=== PATIENT | male | born 1955 | race Caucasian/White ===

== ENCOUNTER 2019-05-29 10:18 | Inpatient (IN) | payer OTHER, MEDICAID ==
[~2019-05-29] VITALS: Ht 172.7 cm; Wt 73.0 kg
[2019-05-29 10:18] VITALS: BP_SYST 140
[2019-05-29] MEDS ORDERED: AMLO5TAB92 GT (10:57)
[2019-05-29] MEDS ORDERED: WHEY227P GT (10:59)
[2019-05-29] MEDS ORDERED: BIOT25008 GT (10:59)
[2019-05-29 11:35] LABS: BASOPHILS % (AUTO) 0.3 % (0.0-2.0); EOSINOPHILS % (AUTO) 0.3 % (0.0-4.0); HEMOGLOBIN 8.5 g/dL (14.0-18.0); LYMPHOCYTES # (AUTO) 0.4 K/uL (1.0-5.5); LYMPHOCYTES % (AUTO) 3.9 % (20.5-51.5); MEAN CORPUSCULAR HEMOGLOBIN 35 pg (27-31); MEAN CORPUSCULAR HGB CONC 34 % (32-36); MEAN CORPUSCULAR VOLUME 103 fL (79.0-98.0); MONOCYTES # (AUTO) 0.5 K/uL (0.0-1.0); MONOCYTES % (AUTO) 4.2 % (1.7-9.3); NEUTROPHILS # (AUTO) 10.2 K/uL (1.8-7.7); NEUTROPHILS % (AUTO) 91.3 % (40.0-70.0); PLATELET COUNT (AUTO) 88 K/uL (130-430); RED BLOOD CELL COUNT(AUTO) 2.43 MIL/uL (4.2-6.2); RED CELL DISTRIBUTION WIDTH 13.1 % (9.0-15.0); WHITE BLOOD COUNT (AUTO) 11.2 K/uL (4.8-10.8)
[2019-05-29 11:51] LABS: BILIRUBIN,URINE NEGATIVE (NEGATIVE); BLOOD, URINE 1+ (NEGATIVE); CLARITY/URINE SL CLOUDY (CLEAR); COLOR,URINE YELLOW (YELLOW); GLUCOSE,URINE NEGATIVE (NEGATIVE); KETONES,URINE NEGATIVE (NEGATIVE); LEUKOCYTE ESTERASE ,URINE 3+ (NEGATIVE); NITRITE, URINE NEGATIVE (NEGATIVE); PH,URINE 5.5 (5.0-8.0); PROTEIN URINE 1+ (NEGATIVE); UROBILINOGEN,URINE 0.2 (0.2-1.0)
[2019-05-29 11:57] LABS: BACTERIA,URINE FEW /HPF (None Seen); URINE AMORPHOUS URATE 1+ /HPF (None Seen); WBC,URINE 20-50 /HPF (0-3)
[2019-05-29] MEDS ORDERED: CETI10CA GT (12:00)
[2019-05-29] MEDS ORDERED: CRAN450C GT (12:06)
[2019-05-29] MEDS ORDERED: CLOB10TA GT (12:06)
[2019-05-29] MEDS ORDERED: ERGO400T7 GT (12:06)
[2019-05-29 12:16] LABS: CALCIUM 10.1 mg/dL (8.4-11.0); CREATININE 3.35 mg/dL (0.55-1.30); POTASSIUM 4.7 mmol/L (3.5-5.1); TOTAL BILIRUBIN 0.3 mg/dL (0.0-1.0)
[2019-05-29 12:21] LABS: ALBUMIN 2.4 g/dL (3.4-4.8)
[2019-05-29] MEDS ORDERED: TRI48 GT (12:22)
[2019-05-29] MEDS ORDERED: cefTRIAXone 1 GM IVPB PREMIX 50 ML IV ONE (13:15)
[2019-05-29 13:28] LABS: PROTHROMBIN TIME 9.9 SECS (9.5-12.5)
[2019-05-29] MEDS ORDERED: PHEN100O4 GT (14:12)
[2019-05-29] MEDS ORDERED: HYDR-4037 GT (14:12)
[2019-05-29] MEDS ORDERED: TYLL650 GT (14:12)
[2019-05-29] MEDS ORDERED: LACO100T2 GT (14:12)
[2019-05-29] MEDS ORDERED: [UNRECOGNIZED DRUG - CODE] TP (14:12)
[2019-05-29] MEDS ORDERED: DENO60DI SUBCUT (14:12)
[2019-05-29] MEDS ORDERED: ONDA4TAB5 PO (14:12)
[2019-05-29] MEDS ORDERED: SODI650T GT (14:12)
[2019-05-29] MEDS ORDERED: LEVE1000 GT ×2 (14:12)
[2019-05-29] MEDS ORDERED: ALBU2.5V7 INH (14:12)
[2019-05-29] MEDS ORDERED: LORA-258 IM (14:12)
[2019-05-29] MEDS ORDERED: [UNRECOGNIZED DRUG - CODE] IJ (14:12)
[2019-05-29] MEDS ORDERED: BISA10SU61 RC (14:12)
[2019-05-29] MEDS ORDERED: POLY17PO4 GT (14:12)
[2019-05-29] MEDS ORDERED: FER300L GT (14:12)
[2019-05-29] MEDS ORDERED: MULT-1145 GT (14:12)
[2019-05-29] MEDS ORDERED: IMO2 GT (14:12)
[2019-05-29] MEDS ORDERED: sodium chloride GT (14:12)
[2019-05-29] MEDS ORDERED: OMEP20CA11 GT (14:12)
[2019-05-29] MEDS ORDERED: ROBAC GT (14:12)
[2019-05-29] MEDS ORDERED: ASCO500S10 GT (14:12)
[2019-05-29] MEDS ORDERED: ACETAMINOPHEN 650 MG/20.3 ML UDC GT PRN (14:15)
[2019-05-29] MEDS ORDERED: FLUOCINOLONE 0.025% TP SCH (14:30)
[2019-05-29] MEDS ORDERED: LORazepam 1 MG TABLET GT PRN (14:30)
[2019-05-29] MEDS ORDERED: BISACODYL 10 MG/SUPPOSITORY RC PRN (14:30)
[2019-05-29] MEDS ORDERED: guaiFENesin 200 MG/CODEINE 20 MG/ 10 ML UDC GT PRN (14:30)
[2019-05-29] MEDS ORDERED: ONDANSETRON 4 MG ODT TAB PO PRN (14:30)
[2019-05-29] MEDS ORDERED: ALBUTEROL SULFATE 0.083% 2.5 MG/3 ML VIAL.NEB INH PRN (14:30)
[2019-05-29 14:31] VITALS: BP_SYST 134
[2019-05-29 15:41] VITALS: BP_SYST 124
[2019-05-29] MEDS ORDERED: TRIAMCINOLONE ACETONIDE 0.1% 15 GM OINT..GM. TP PRN (15:45)
[2019-05-29] MEDS: NACL 0.9% 1,000 ML IV SCH (17:15)
[2019-05-29] MEDS: LOPERAMIDE HCL 2 MG CAPSULE GT SCH (17:19)
[2019-05-29] MEDS: FERROUS SULFATE 300 MG/5 ML UDC GT SCH ×2 (17:19→22:31)
[2019-05-29] MEDS: PHENYTOIN 100 MG/4 ML UDC (DILANTIN) GT SCH ×2 (17:19→22:31)
[2019-05-29] MEDS: SODIUM BICARBONATE 650 MG TABLET GT SCH ×2 (17:20→22:30)
[2019-05-29] MEDS: levETIRAcetam 500 MG TABLET GT SCH (17:20)
[2019-05-29 20:00] VITALS: BP_SYST 139; BP_SYST 156
[2019-05-29] MEDS: LACOSAMIDE 100 MG TABLET GT SCH (22:30)
[2019-05-29] MEDS: hydrALAZINE HCL 10 MG TABLET GT SCH (22:31)
[2019-05-30] MEDS: LOPERAMIDE HCL 2 MG CAPSULE GT SCH ×4 (00:02→18:04)
[2019-05-30] MEDS: NACL 0.9% 1,000 ML IV SCH ×3 (00:03→20:14)
[2019-05-30 00:05] VITALS: BP_SYST 129
[2019-05-30] MEDS: LANSOPRAZOLE 30 MG CAPSULE.DR GT SCH (06:05)
[2019-05-30 07:18] LABS: BASOPHILS % (AUTO) 0.2 % (0.0-2.0); EOSINOPHILS # (AUTO) 0.3 K/uL (0.0-0.4); EOSINOPHILS % (AUTO) 4.3 % (0.0-4.0); HEMATOCRIT 25.3 % (36-54); HEMOGLOBIN 8.7 g/dL (14.0-18.0); LYMPHOCYTES # (AUTO) 0.6 K/uL (1.0-5.5); LYMPHOCYTES % (AUTO) 8.3 % (20.5-51.5); MEAN CORPUSCULAR HEMOGLOBIN 36 pg (27-31); MEAN CORPUSCULAR HGB CONC 35 % (32-36); MEAN CORPUSCULAR VOLUME 104 fL (79.0-98.0); MONOCYTES # (AUTO) 0.3 K/uL (0.0-1.0); NEUTROPHILS # (AUTO) 6.3 K/uL (1.8-7.7); NEUTROPHILS % (AUTO) 83.2 % (40.0-70.0); PLATELET COUNT (AUTO) 67 K/uL (130-430); RED BLOOD CELL COUNT(AUTO) 2.44 MIL/uL (4.2-6.2); RED CELL DISTRIBUTION WIDTH 12.9 % (9.0-15.0); WHITE BLOOD COUNT (AUTO) 7.5 K/uL (4.8-10.8)
[2019-05-30 07:42] LABS: ALBUMIN 2.3 g/dL (3.4-4.8); CALCIUM 9.6 mg/dL (8.4-11.0); CREATININE 3.32 mg/dL (0.55-1.30); POTASSIUM 4.3 mmol/L (3.5-5.1); TOTAL BILIRUBIN 0.3 mg/dL (0.0-1.0)
[2019-05-30 08:10] VITALS: BP_SYST 138
[2019-05-30] MEDS ORDERED: EPOETIN ALFA 20,000 UNITS/ML VIAL SUBCUT ONE (09:30)
[2019-05-30] MEDS: hydrALAZINE HCL 10 MG TABLET GT SCH ×2 (09:36→21:18)
[2019-05-30] MEDS: PHENYTOIN 100 MG/4 ML UDC (DILANTIN) GT SCH ×3 (09:37→21:18)
[2019-05-30] MEDS: POLYETHYLENE GLYCOL 3350, 17 GM/ POWD.PACK GT SCH (09:37)
[2019-05-30] MEDS: FERROUS SULFATE 300 MG/5 ML UDC GT SCH ×3 (09:37→21:17)
[2019-05-30] MEDS: levETIRAcetam 500 MG TABLET GT SCH ×2 (09:37→18:05)
[2019-05-30] MEDS: LACOSAMIDE 100 MG TABLET GT SCH ×2 (09:38→21:17)
[2019-05-30] MEDS: SODIUM BICARBONATE 650 MG TABLET GT SCH ×3 (09:38→21:17)
[2019-05-30] MEDS: amLODIPine BESYLATE 5 MG TABLET GT SCH (09:38)
[2019-05-30] MEDS: FENOFIBRATE NANOCRYSTALLIZED 48 MG TABLET (TRICOR) GT SCH (09:38)
[2019-05-30] MEDS: MULTIVITS,CA,MINERALS/IRON/FA 1 TABLET GT SCH (09:38)
[2019-05-30] MEDS: cefTRIAXone 1 GM IVPB PREMIX 50 ML IV SCH (09:39)
[2019-05-30 12:05] VITALS: BP_SYST 160
[2019-05-30] MEDS ORDERED: FUROSEMIDE 40 MG/4 ML VIAL IVP ONE (14:00)
[2019-05-30 18:00] VITALS: BP_SYST 155
[2019-05-30] MEDS: METOCLOPRAMIDE HCL 10 MG/2 ML VIAL IVP SCH (18:00)
[2019-05-30 20:00] VITALS: BP_SYST 156
[2019-05-31 00:04] VITALS: BP_SYST 132
[2019-05-31] MEDS: LOPERAMIDE HCL 2 MG CAPSULE GT SCH ×2 (00:06→06:39)
[2019-05-31] MEDS: METOCLOPRAMIDE HCL 10 MG/2 ML VIAL IVP SCH ×4 (06:00→18:00)
[2019-05-31] MEDS: NACL 0.9% 1,000 ML IV SCH (06:14)
[2019-05-31] MEDS: LANSOPRAZOLE 30 MG CAPSULE.DR GT SCH (06:39)
[2019-05-31 08:00] VITALS: BP_SYST 125
[2019-05-31] MEDS: FERROUS SULFATE 300 MG/5 ML UDC GT SCH ×3 (08:54→22:14)
[2019-05-31] MEDS: PHENYTOIN 100 MG/4 ML UDC (DILANTIN) GT SCH ×3 (08:54→22:14)
[2019-05-31] MEDS: levETIRAcetam 500 MG TABLET GT SCH ×2 (08:55→18:22)
[2019-05-31] MEDS: SODIUM BICARBONATE 650 MG TABLET GT SCH ×3 (08:55→22:15)
[2019-05-31] MEDS: hydrALAZINE HCL 10 MG TABLET GT SCH ×2 (08:56→22:18)
[2019-05-31] MEDS: amLODIPine BESYLATE 5 MG TABLET GT SCH (08:56)
[2019-05-31] MEDS: FENOFIBRATE NANOCRYSTALLIZED 48 MG TABLET (TRICOR) GT SCH (08:56)
[2019-05-31] MEDS: MULTIVITS,CA,MINERALS/IRON/FA 1 TABLET GT SCH (08:57)
[2019-05-31] MEDS: POLYETHYLENE GLYCOL 3350, 17 GM/ POWD.PACK GT SCH (08:58)
[2019-05-31] MEDS: LACOSAMIDE 100 MG TABLET GT SCH ×2 (08:58→22:15)
[2019-05-31] MEDS: FUROSEMIDE 40 MG/4 ML VIAL IVP SCH (09:00)
[2019-05-31] MEDS: cefTRIAXone 1 GM IVPB PREMIX 50 ML IV SCH (09:00)
[2019-05-31 09:18] LABS: BASOPHILS % (AUTO) 0.3 % (0.0-2.0); EOSINOPHILS # (AUTO) 0.5 K/uL (0.0-0.4); EOSINOPHILS % (AUTO) 5.6 % (0.0-4.0); HEMATOCRIT 25.7 % (36-54); HEMOGLOBIN 8.8 g/dL (14.0-18.0); LYMPHOCYTES # (AUTO) 0.4 K/uL (1.0-5.5); MEAN CORPUSCULAR HEMOGLOBIN 35 pg (27-31); MEAN CORPUSCULAR HGB CONC 34 % (32-36); MEAN CORPUSCULAR VOLUME 103 fL (79.0-98.0); MONOCYTES # (AUTO) 0.3 K/uL (0.0-1.0); MONOCYTES % (AUTO) 3.1 % (1.7-9.3); NEUTROPHILS # (AUTO) 7.7 K/uL (1.8-7.7); PLATELET COUNT (AUTO) 82 K/uL (130-430); RED BLOOD CELL COUNT(AUTO) 2.48 MIL/uL (4.2-6.2); RED CELL DISTRIBUTION WIDTH 13.4 % (9.0-15.0); WHITE BLOOD COUNT (AUTO) 8.9 K/uL (4.8-10.8)
[2019-05-31 09:25] LABS: ALBUMIN 2.3 g/dL (3.4-4.8); CALCIUM 9.3 mg/dL (8.4-11.0); CREATININE 3.1 mg/dL (0.55-1.30); PHOSPHORUS 5.6 mg/dL (2.7-4.5); POTASSIUM 4.4 mmol/L (3.5-5.1); TOTAL BILIRUBIN 0.3 mg/dL (0.0-1.0)
[2019-05-31 14:30] VITALS: BP_SYST 135
[2019-05-31 18:52] VITALS: BP_SYST 150
[2019-06-01] VITALS (21 sets, daily range): BP systolic 95–146
[2019-06-01] MEDS ORDERED: FUROSEMIDE 40 MG/4 ML VIAL IVP ONE (01:00)
[2019-06-01] MEDS: METOCLOPRAMIDE HCL 10 MG/2 ML VIAL IVP SCH ×4 (01:23→21:47)
[2019-06-01] MEDS: D5/0.45 NS 1,000 ML IV SCH (01:27)
[2019-06-01] MEDS: LANSOPRAZOLE 30 MG CAPSULE.DR GT SCH (06:06)
[2019-06-01 07:39] LABS: HEMATOCRIT 25.3 % (36-54); HEMOGLOBIN 8.8 g/dL (14.0-18.0); MEAN CORPUSCULAR HEMOGLOBIN 36 pg (27-31); MEAN CORPUSCULAR HGB CONC 35 % (32-36); MEAN CORPUSCULAR VOLUME 103 fL (79.0-98.0); PLATELET COUNT (AUTO) 115 K/uL (130-430); RED BLOOD CELL COUNT(AUTO) 2.45 MIL/uL (4.2-6.2); RED CELL DISTRIBUTION WIDTH 13.2 % (9.0-15.0); WHITE BLOOD COUNT (AUTO) 10.7 K/uL (4.8-10.8)
[2019-06-01] MEDS ORDERED: PHYTONADIONE 10 MG/ML AMP SUBCUT ONE (08:00)
[2019-06-01 08:03] LABS: ALBUMIN 2.4 g/dL (3.4-4.8); CALCIUM 9.7 mg/dL (8.4-11.0); CREATININE 3.29 mg/dL (0.55-1.30); POTASSIUM 3.8 mmol/L (3.5-5.1); TOTAL BILIRUBIN 0.2 mg/dL (0.0-1.0)
[2019-06-01 08:15] LABS: BAND % (MANUAL) 10 % (0-6); BASOPHILS % (MANUAL) 0 % (0-2); EOSINOPHILS % (MANUAL) 0 % (0-7); LYMPHOCYTES % (MANUAL) 4 % (20-46); METAMYELOCYTES % 2 % (0-0); MONOCYTES % (MANUAL) 1 % (0-11)
[2019-06-01] MEDS ORDERED: DILTIAZEM HCL 25 MG/5 ML VIAL IVP ONE (08:30)
[2019-06-01] MEDS ORDERED: DILTIAZEM HCL 25 MG/5 ML VIAL ONE (08:49)
[2019-06-01] MEDS: MINERAL OIL 30 ML UDC PO SCH (09:00)
[2019-06-01] MEDS: POLYETHYLENE GLYCOL 3350, 17 GM/ POWD.PACK GT SCH (09:00)
[2019-06-01] MEDS: FUROSEMIDE 40 MG/4 ML VIAL IVP SCH (09:03)
[2019-06-01] MEDS ORDERED: LEVALBUTEROL HCL 0.63 MG/3 ML VIAL.NEB INH PRN (09:45)
[2019-06-01] MEDS ORDERED: IPRATROPIUM BROM 0.5 MG/2.5 ML VIAL.NEB (ATROVENT) INH PRN (09:45)
[2019-06-01] MEDS: hydrALAZINE HCL 10 MG TABLET GT SCH ×2 (10:28→21:47)
[2019-06-01] MEDS: FERROUS SULFATE 300 MG/5 ML UDC GT SCH (10:29)
[2019-06-01] MEDS: PHENYTOIN 100 MG/4 ML UDC (DILANTIN) GT SCH (10:29)
[2019-06-01] MEDS: SODIUM BICARBONATE 650 MG TABLET GT SCH ×3 (10:29→21:46)
[2019-06-01] MEDS: MULTIVITS,CA,MINERALS/IRON/FA 1 TABLET GT SCH (10:29)
[2019-06-01] MEDS: levETIRAcetam 500 MG TABLET GT SCH ×2 (10:29→17:16)
[2019-06-01] MEDS: FENOFIBRATE NANOCRYSTALLIZED 48 MG TABLET (TRICOR) GT SCH (10:29)
[2019-06-01] MEDS: cefTRIAXone 1 GM IVPB PREMIX 50 ML IV SCH (10:30)
[2019-06-01] MEDS: LACOSAMIDE 100 MG TABLET GT SCH ×2 (10:30→21:46)
[2019-06-01] MEDS: amLODIPine BESYLATE 5 MG TABLET GT SCH (10:30)
[2019-06-01] MEDS ORDERED: DIGOXIN 0.5 MG/2 ML AMP IVP ONE (11:45)
[2019-06-01] MEDS: LEVALBUTEROL HCL 0.63 MG/3 ML VIAL.NEB INH SCH ×2 (13:45→19:59)
[2019-06-01] MEDS: IPRATROPIUM BROM 0.5 MG/2.5 ML VIAL.NEB (ATROVENT) INH SCH ×2 (13:46→19:59)
[2019-06-01] MEDS: ALBUMIN HUMAN 25% 50 ML IV SCH ×2 (19:49→23:04)
[2019-06-01] MEDS: HEPARIN SODIUM,PORCINE 5000 UNITS/ML VIAL SUBCUT SCH (21:49)
[2019-06-02] VITALS (22 sets, daily range): BP systolic 108–142
[2019-06-02] MEDS: IPRATROPIUM BROM 0.5 MG/2.5 ML VIAL.NEB (ATROVENT) INH SCH ×4 (01:31→19:47)
[2019-06-02] MEDS: LEVALBUTEROL HCL 0.63 MG/3 ML VIAL.NEB INH SCH ×4 (01:31→19:47)
[2019-06-02] MEDS: D5/0.45 NS 1,000 ML IV SCH ×2 (01:48→21:18)
[2019-06-02] MEDS: ALBUMIN HUMAN 25% 50 ML IV SCH (03:00)
[2019-06-02 05:40] LABS: BASOPHILS % (AUTO) 0.6 % (0.0-2.0); EOSINOPHILS # (AUTO) 0.3 K/uL (0.0-0.4); EOSINOPHILS % (AUTO) 7.4 % (0.0-4.0); HEMOGLOBIN 7.2 g/dL (14.0-18.0); LYMPHOCYTES # (AUTO) 0.6 K/uL (1.0-5.5); LYMPHOCYTES % (AUTO) 13.4 % (20.5-51.5); MEAN CORPUSCULAR HEMOGLOBIN 35 pg (27-31); MEAN CORPUSCULAR HGB CONC 34 % (32-36); MEAN CORPUSCULAR VOLUME 103 fL (79.0-98.0); MONOCYTES # (AUTO) 0.3 K/uL (0.0-1.0); MONOCYTES % (AUTO) 7.2 % (1.7-9.3); NEUTROPHILS # (AUTO) 3.3 K/uL (1.8-7.7); NEUTROPHILS % (AUTO) 71.4 % (40.0-70.0); PLATELET COUNT (AUTO) 78 K/uL (130-430); RED BLOOD CELL COUNT(AUTO) 2.05 MIL/uL (4.2-6.2); WHITE BLOOD COUNT (AUTO) 4.7 K/uL (4.8-10.8)
[2019-06-02 05:47] LABS: HEMATOCRIT 21.2 % (36-54)
[2019-06-02 06:06] LABS: ALBUMIN 2.9 g/dL (3.4-4.8); CALCIUM 9.5 mg/dL (8.4-11.0); CREATININE 3.3 mg/dL (0.55-1.30); PHOSPHORUS 3.9 mg/dL (2.7-4.5); POTASSIUM 3.5 mmol/L (3.5-5.1); TOTAL BILIRUBIN 0.2 mg/dL (0.0-1.0)
[2019-06-02] MEDS: LANSOPRAZOLE 30 MG CAPSULE.DR GT SCH (06:13)
[2019-06-02] MEDS: METOCLOPRAMIDE HCL 10 MG/2 ML VIAL IVP SCH ×3 (06:13→21:17)
[2019-06-02 07:10] LABS: TOTAL IRON BIND. CAPACITY 184 ug/dL (250-450)
[2019-06-02] MEDS: POLYETHYLENE GLYCOL 3350, 17 GM/ POWD.PACK GT SCH (09:00)
[2019-06-02] MEDS: MINERAL OIL 30 ML UDC PO SCH (09:00)
[2019-06-02] MEDS: cefTRIAXone 1 GM IVPB PREMIX 50 ML IV SCH (10:04)
[2019-06-02] MEDS: LACOSAMIDE 100 MG TABLET GT SCH ×2 (10:05→21:17)
[2019-06-02] MEDS: MULTIVITS,CA,MINERALS/IRON/FA 1 TABLET GT SCH (10:06)
[2019-06-02] MEDS: levETIRAcetam 500 MG TABLET GT SCH ×2 (10:06→17:04)
[2019-06-02] MEDS: SODIUM BICARBONATE 650 MG TABLET GT SCH ×2 (10:06→15:03)
[2019-06-02] MEDS: amLODIPine BESYLATE 5 MG TABLET GT SCH (10:09)
[2019-06-02] MEDS: FUROSEMIDE 40 MG/4 ML VIAL IVP SCH (10:09)
[2019-06-02] MEDS: hydrALAZINE HCL 10 MG TABLET GT SCH ×2 (10:10→21:17)
[2019-06-02] MEDS: FENOFIBRATE NANOCRYSTALLIZED 48 MG TABLET (TRICOR) GT SCH (10:10)
[2019-06-02] MEDS: DIGOXIN 0.5 MG/2 ML AMP IVP SCH (10:11)
[2019-06-02] MEDS: HEPARIN SODIUM,PORCINE 5000 UNITS/ML VIAL SUBCUT SCH ×2 (10:12→21:20)
[2019-06-03] VITALS (20 sets, daily range): BP systolic 101–142
[2019-06-03] MEDS: LEVALBUTEROL HCL 0.63 MG/3 ML VIAL.NEB INH SCH ×4 (01:37→20:09)
[2019-06-03] MEDS: IPRATROPIUM BROM 0.5 MG/2.5 ML VIAL.NEB (ATROVENT) INH SCH ×4 (01:38→20:09)
[2019-06-03] MEDS: METOCLOPRAMIDE HCL 10 MG/2 ML VIAL IVP SCH ×3 (06:15→21:34)
[2019-06-03] MEDS: LANSOPRAZOLE 30 MG CAPSULE.DR GT SCH (06:15)
[2019-06-03] MEDS: POLYETHYLENE GLYCOL 3350, 17 GM/ POWD.PACK GT SCH (07:37)
[2019-06-03] MEDS: MINERAL OIL 30 ML UDC PO SCH (07:39)
[2019-06-03] MEDS: cefTRIAXone 1 GM IVPB PREMIX 50 ML IV SCH (08:16)
[2019-06-03] MEDS: LACOSAMIDE 100 MG TABLET GT SCH ×2 (09:31→21:33)
[2019-06-03] MEDS: FENOFIBRATE NANOCRYSTALLIZED 48 MG TABLET (TRICOR) GT SCH (09:32)
[2019-06-03] MEDS: levETIRAcetam 500 MG TABLET GT SCH ×2 (09:32→17:01)
[2019-06-03] MEDS: amLODIPine BESYLATE 5 MG TABLET GT SCH (09:32)
[2019-06-03] MEDS: hydrALAZINE HCL 10 MG TABLET GT SCH ×2 (09:32→21:33)
[2019-06-03] MEDS: FUROSEMIDE 40 MG/4 ML VIAL IVP SCH (09:33)
[2019-06-03] MEDS: MULTIVITS,CA,MINERALS/IRON/FA 1 TABLET GT SCH (09:33)
[2019-06-03] MEDS: DIGOXIN 0.5 MG/2 ML AMP IVP SCH (09:34)
[2019-06-03] MEDS: HEPARIN SODIUM,PORCINE 5000 UNITS/ML VIAL SUBCUT SCH ×2 (09:34→21:37)
[2019-06-03 10:02] LABS: BASOPHILS % (AUTO) 0.3 % (0.0-2.0); CALCIUM 9.4 mg/dL (8.4-11.0); CREATININE 3.21 mg/dL (0.55-1.30); EOSINOPHILS # (AUTO) 0.8 K/uL (0.0-0.4); EOSINOPHILS % (AUTO) 12.2 % (0.0-4.0); HEMATOCRIT 23.1 % (36-54); HEMOGLOBIN 7.9 g/dL (14.0-18.0); LYMPHOCYTES # (AUTO) 0.7 K/uL (1.0-5.5); LYMPHOCYTES % (AUTO) 10.2 % (20.5-51.5); MEAN CORPUSCULAR HEMOGLOBIN 35 pg (27-31); MEAN CORPUSCULAR HGB CONC 34 % (32-36); MEAN CORPUSCULAR VOLUME 104 fL (79.0-98.0); MONOCYTES # (AUTO) 0.5 K/uL (0.0-1.0); MONOCYTES % (AUTO) 6.9 % (1.7-9.3); NEUTROPHILS # (AUTO) 4.9 K/uL (1.8-7.7); NEUTROPHILS % (AUTO) 70.4 % (40.0-70.0); PHOSPHORUS 4.3 mg/dL (2.7-4.5); PLATELET COUNT (AUTO) 95 K/uL (130-430); POTASSIUM 3.6 mmol/L (3.5-5.1); RED BLOOD CELL COUNT(AUTO) 2.23 MIL/uL (4.2-6.2); RED CELL DISTRIBUTION WIDTH 13.2 % (9.0-15.0); WHITE BLOOD COUNT (AUTO) 6.9 K/uL (4.8-10.8)
[2019-06-03 10:05] LABS: PHENYTOIN (DILANTIN) 39.9 ug/mL (10.0-20.0)
[2019-06-03 10:06] LABS: FOLATE (FOLIC ACID) >20.0 ng/mL (>3.0)
[2019-06-03] MEDS: D5/0.45 NS 1,000 ML IV SCH (12:13)
[2019-06-04 00:38] VITALS: BP_SYST 131
[2019-06-04] MEDS: LEVALBUTEROL HCL 0.63 MG/3 ML VIAL.NEB INH SCH ×4 (00:55→20:00)
[2019-06-04] MEDS: IPRATROPIUM BROM 0.5 MG/2.5 ML VIAL.NEB (ATROVENT) INH SCH ×4 (00:55→20:01)
[2019-06-04] MEDS: LANSOPRAZOLE 30 MG CAPSULE.DR GT SCH (06:18)
[2019-06-04] MEDS: METOCLOPRAMIDE HCL 10 MG/2 ML VIAL IVP SCH ×3 (06:18→21:34)
[2019-06-04 09:58] LABS: BASOPHILS % (AUTO) 0.3 % (0.0-2.0); EOSINOPHILS % (AUTO) 16.9 % (0.0-4.0); HEMATOCRIT 23.3 % (36-54); HEMOGLOBIN 7.9 g/dL (14.0-18.0); LYMPHOCYTES # (AUTO) 0.6 K/uL (1.0-5.5); LYMPHOCYTES % (AUTO) 9.8 % (20.5-51.5); MEAN CORPUSCULAR HEMOGLOBIN 35 pg (27-31); MEAN CORPUSCULAR HGB CONC 34 % (32-36); MEAN CORPUSCULAR VOLUME 104 fL (79.0-98.0); MONOCYTES # (AUTO) 0.5 K/uL (0.0-1.0); MONOCYTES % (AUTO) 7.4 % (1.7-9.3); NEUTROPHILS % (AUTO) 65.6 % (40.0-70.0); PLATELET COUNT (AUTO) 103 K/uL (130-430); RED BLOOD CELL COUNT(AUTO) 2.25 MIL/uL (4.2-6.2); RED CELL DISTRIBUTION WIDTH 12.8 % (9.0-15.0); WHITE BLOOD COUNT (AUTO) 6.1 K/uL (4.8-10.8)
[2019-06-04 10:31] LABS: DIGOXIN 0.5 ng/mL (0.80-2.00)
[2019-06-04 10:40] LABS: PHENYTOIN (DILANTIN) 34.3 ug/mL (10.0-20.0)
[2019-06-04 10:45] LABS: POTASSIUM 3.2 mmol/L (3.5-5.1)
[2019-06-04 10:46] LABS: CALCIUM 9.9 mg/dL (8.4-11.0); CREATININE 3.03 mg/dL (0.55-1.30)
[2019-06-04] MEDS: DIGOXIN 0.5 MG/2 ML AMP IVP SCH (10:53)
[2019-06-04] MEDS: LACOSAMIDE 100 MG TABLET GT SCH ×2 (10:54→21:34)
[2019-06-04] MEDS: levETIRAcetam 500 MG TABLET GT SCH ×2 (10:54→18:19)
[2019-06-04] MEDS: MULTIVITS,CA,MINERALS/IRON/FA 1 TABLET GT SCH (10:54)
[2019-06-04] MEDS: POLYETHYLENE GLYCOL 3350, 17 GM/ POWD.PACK GT SCH (11:04)
[2019-06-04] MEDS: HEPARIN SODIUM,PORCINE 5000 UNITS/ML VIAL SUBCUT SCH ×2 (11:04→21:40)
[2019-06-04] MEDS: MINERAL OIL 30 ML UDC PO SCH (11:04)
[2019-06-04] MEDS: cefTRIAXone 1 GM IVPB PREMIX 50 ML IV SCH (11:05)
[2019-06-04] MEDS: amLODIPine BESYLATE 5 MG TABLET GT SCH (11:05)
[2019-06-04] MEDS: FENOFIBRATE NANOCRYSTALLIZED 48 MG TABLET (TRICOR) GT SCH (11:05)
[2019-06-04] MEDS: FUROSEMIDE 40 MG/4 ML VIAL IVP SCH (11:06)
[2019-06-04] MEDS: hydrALAZINE HCL 10 MG TABLET GT SCH ×2 (11:08→21:34)
[2019-06-04 12:00] VITALS: BP_SYST 134
[2019-06-04] MEDS ORDERED: POTASSIUM CHLORIDE 20 MEQ TAB.PRT.SR PO ONE (13:15)
[2019-06-04] MEDS ORDERED: POTASSIUM CHLORIDE 20 MEQ/PKT PACKET GT ONE (14:00)
[2019-06-04] MEDS ORDERED: POTASSIUM CHLORIDE 20 MEQ/PKT PACKET PO ONE (14:00)
[2019-06-04] MEDS: D5/0.45 NS 1,000 ML IV SCH (14:31)
[2019-06-04 16:30] VITALS: BP_SYST 140
[2019-06-04 21:22] VITALS: BP_SYST 124
[2019-06-05 00:22] VITALS: BP_SYST 149
[2019-06-05] MEDS: LEVALBUTEROL HCL 0.63 MG/3 ML VIAL.NEB INH SCH ×2 (01:00→19:43)
[2019-06-05] MEDS: IPRATROPIUM BROM 0.5 MG/2.5 ML VIAL.NEB (ATROVENT) INH SCH ×2 (01:01→19:44)
[2019-06-05] MEDS: LANSOPRAZOLE 30 MG CAPSULE.DR GT SCH (05:38)
[2019-06-05] MEDS: METOCLOPRAMIDE HCL 10 MG/2 ML VIAL IVP SCH ×3 (05:38→23:26)
[2019-06-05 06:10] LABS: CALCIUM 9.8 mg/dL (8.4-11.0); CREATININE 3.01 mg/dL (0.55-1.30); POTASSIUM 3.8 mmol/L (3.5-5.1)
[2019-06-05 07:08] LABS: BASOPHILS % (AUTO) 0.5 % (0.0-2.0); EOSINOPHILS # (AUTO) 1.5 K/uL (0.0-0.4); EOSINOPHILS % (AUTO) 21.1 % (0.0-4.0); HEMATOCRIT 22.2 % (36-54); HEMOGLOBIN 7.6 g/dL (14.0-18.0); LYMPHOCYTES # (AUTO) 0.8 K/uL (1.0-5.5); LYMPHOCYTES % (AUTO) 10.8 % (20.5-51.5); MEAN CORPUSCULAR HEMOGLOBIN 36 pg (27-31); MEAN CORPUSCULAR HGB CONC 34 % (32-36); MEAN CORPUSCULAR VOLUME 104 fL (79.0-98.0); MONOCYTES # (AUTO) 0.6 K/uL (0.0-1.0); MONOCYTES % (AUTO) 8.8 % (1.7-9.3); NEUTROPHILS # (AUTO) 4.2 K/uL (1.8-7.7); NEUTROPHILS % (AUTO) 58.8 % (40.0-70.0); PLATELET COUNT (AUTO) 148 K/uL (130-430); RED BLOOD CELL COUNT(AUTO) 2.13 MIL/uL (4.2-6.2); RED CELL DISTRIBUTION WIDTH 12.9 % (9.0-15.0); WHITE BLOOD COUNT (AUTO) 7.1 K/uL (4.8-10.8)
[2019-06-05 07:51] LABS: PHENYTOIN (DILANTIN) 33.2 ug/mL (10.0-20.0)
[2019-06-05 08:00] VITALS: BP_SYST 107
[2019-06-05] MEDS: MINERAL OIL 30 ML UDC PO SCH (09:03)
[2019-06-05] MEDS: FENOFIBRATE NANOCRYSTALLIZED 48 MG TABLET (TRICOR) GT SCH (09:03)
[2019-06-05] MEDS: LACOSAMIDE 100 MG TABLET GT SCH ×2 (09:03→23:26)
[2019-06-05] MEDS: cefTRIAXone 1 GM IVPB PREMIX 50 ML IV SCH (09:03)
[2019-06-05] MEDS: POLYETHYLENE GLYCOL 3350, 17 GM/ POWD.PACK GT SCH (09:03)
[2019-06-05] MEDS: hydrALAZINE HCL 10 MG TABLET GT SCH ×2 (09:04→23:27)
[2019-06-05] MEDS: amLODIPine BESYLATE 5 MG TABLET GT SCH (09:04)
[2019-06-05] MEDS: levETIRAcetam 500 MG TABLET GT SCH ×2 (09:05→17:59)
[2019-06-05] MEDS: MULTIVITS,CA,MINERALS/IRON/FA 1 TABLET GT SCH (09:05)
[2019-06-05] MEDS: DIGOXIN 0.5 MG/2 ML AMP IVP SCH (09:05)
[2019-06-05] MEDS: FUROSEMIDE 40 MG/4 ML VIAL IVP SCH (09:06)
[2019-06-05] MEDS: HEPARIN SODIUM,PORCINE 5000 UNITS/ML VIAL SUBCUT SCH ×2 (09:09→23:29)
[2019-06-05 12:32] VITALS: BP_SYST 145
[2019-06-05 16:16] VITALS: BP_SYST 138
[2019-06-05] MEDS: D5/0.45 NS 1,000 ML IV SCH (18:24)
[2019-06-05 20:00] VITALS: BP_SYST 143
[2019-06-05 21:20] LABS: FERRITIN 1638 ng/mL (30-400)
[2019-06-06 00:14] VITALS: BP_SYST 129
[2019-06-06] MEDS: LEVALBUTEROL HCL 0.63 MG/3 ML VIAL.NEB INH SCH ×4 (00:35→20:07)
[2019-06-06] MEDS: IPRATROPIUM BROM 0.5 MG/2.5 ML VIAL.NEB (ATROVENT) INH SCH ×4 (00:35→20:07)
[2019-06-06] MEDS: LANSOPRAZOLE 30 MG CAPSULE.DR GT SCH (06:05)
[2019-06-06] MEDS: METOCLOPRAMIDE HCL 10 MG/2 ML VIAL IVP SCH ×3 (06:05→22:47)
[2019-06-06 08:25] LABS: BASOPHILS # (AUTO) 0.1 K/uL (0.0-0.2); BASOPHILS % (AUTO) 0.5 % (0.0-2.0); EOSINOPHILS # (AUTO) 0.8 K/uL (0.0-0.4); EOSINOPHILS % (AUTO) 8.3 % (0.0-4.0); HEMATOCRIT 23.2 % (36-54); LYMPHOCYTES # (AUTO) 0.9 K/uL (1.0-5.5); LYMPHOCYTES % (AUTO) 8.5 % (20.5-51.5); MEAN CORPUSCULAR HEMOGLOBIN 36 pg (27-31); MEAN CORPUSCULAR HGB CONC 35 % (32-36); MEAN CORPUSCULAR VOLUME 103 fL (79.0-98.0); MONOCYTES # (AUTO) 0.7 K/uL (0.0-1.0); MONOCYTES % (AUTO) 6.6 % (1.7-9.3); NEUTROPHILS # (AUTO) 7.6 K/uL (1.8-7.7); NEUTROPHILS % (AUTO) 76.1 % (40.0-70.0); PLATELET COUNT (AUTO) 195 K/uL (130-430); RED BLOOD CELL COUNT(AUTO) 2.24 MIL/uL (4.2-6.2); RED CELL DISTRIBUTION WIDTH 13.2 % (9.0-15.0)
[2019-06-06] MEDS: POLYETHYLENE GLYCOL 3350, 17 GM/ POWD.PACK GT SCH (09:00)
[2019-06-06] MEDS: MINERAL OIL 30 ML UDC PO SCH (09:00)
[2019-06-06 09:11] LABS: CALCIUM 10.9 mg/dL (8.4-11.0); CREATININE 2.97 mg/dL (0.55-1.30); POTASSIUM 4.2 mmol/L (3.5-5.1)
[2019-06-06] MEDS: HEPARIN SODIUM,PORCINE 5000 UNITS/ML VIAL SUBCUT SCH ×2 (10:19→22:42)
[2019-06-06] MEDS: FENOFIBRATE NANOCRYSTALLIZED 48 MG TABLET (TRICOR) GT SCH (10:20)
[2019-06-06] MEDS: MULTIVITS,CA,MINERALS/IRON/FA 1 TABLET GT SCH (10:20)
[2019-06-06] MEDS: hydrALAZINE HCL 10 MG TABLET GT SCH ×2 (10:21→22:47)
[2019-06-06] MEDS: amLODIPine BESYLATE 5 MG TABLET GT SCH (10:21)
[2019-06-06] MEDS: DIGOXIN 0.5 MG/2 ML AMP IVP SCH (10:22)
[2019-06-06] MEDS: FUROSEMIDE 40 MG/4 ML VIAL IVP SCH (10:22)
[2019-06-06] MEDS: levETIRAcetam 500 MG TABLET GT SCH ×2 (10:22→17:53)
[2019-06-06] MEDS: LACOSAMIDE 100 MG TABLET GT SCH ×2 (11:29→22:44)
[2019-06-06 12:00] VITALS: BP_SYST 161
[2019-06-06] MEDS ORDERED: cefTRIAXone 1 GM IVPB PREMIX 50 ML IV ONE (14:45)
[2019-06-06 16:35] VITALS: BP_SYST 148
[2019-06-06 20:00] VITALS: BP_SYST 134
[2019-06-07] VITALS: BP_SYST 135
[2019-06-07] MEDS: LEVALBUTEROL HCL 0.63 MG/3 ML VIAL.NEB INH SCH ×3 (00:48→14:00)
[2019-06-07] MEDS: IPRATROPIUM BROM 0.5 MG/2.5 ML VIAL.NEB (ATROVENT) INH SCH ×3 (00:48→14:01)
[2019-06-07] MEDS: LANSOPRAZOLE 30 MG CAPSULE.DR GT SCH (06:12)
[2019-06-07] MEDS: METOCLOPRAMIDE HCL 10 MG/2 ML VIAL IVP SCH ×2 (06:12→13:50)
[2019-06-07 06:50] VITALS: BP_SYST 135
[2019-06-07 08:00] VITALS: BP_SYST 148
[2019-06-07] MEDS ORDERED: LevETIRAcetam 500 MG/5 ML UDC ORAL LIQUID GT SCH ×2 (08:33)
[2019-06-07] MEDS: LACOSAMIDE 100 MG TABLET GT SCH (08:41)
[2019-06-07] MEDS: amLODIPine BESYLATE 5 MG TABLET GT SCH (08:42)
[2019-06-07] MEDS: hydrALAZINE HCL 10 MG TABLET GT SCH (08:42)
[2019-06-07] MEDS: FENOFIBRATE NANOCRYSTALLIZED 48 MG TABLET (TRICOR) GT SCH (08:42)
[2019-06-07] MEDS: FUROSEMIDE 40 MG/4 ML VIAL IVP SCH (08:43)
[2019-06-07] MEDS: MULTIVITS,CA,MINERALS/IRON/FA 1 TABLET GT SCH (08:43)
[2019-06-07] MEDS: DIGOXIN 0.5 MG/2 ML AMP IVP SCH (08:43)
[2019-06-07] MEDS: HEPARIN SODIUM,PORCINE 5000 UNITS/ML VIAL SUBCUT SCH (08:45)
[2019-06-07] MEDS: POLYETHYLENE GLYCOL 3350, 17 GM/ POWD.PACK GT SCH (09:00)
[2019-06-07] MEDS: MINERAL OIL 30 ML UDC PO SCH (09:00)
[2019-06-07 12:00] VITALS: BP_SYST 146
[2019-06-07 15:00] VITALS: BP_SYST 165
[2019-06-07] MEDS ORDERED: cefTRIAXone 1 GM in D5W 50 ML IV SCH (15:15)
[2019-06-07 15:17] VITALS: BP_SYST 160
== END 2019-06-07 16:13 | disposition home or self-care (01) | DRG 871 ==
LOC: SED 10:18 → STU 13:28 → SIC 06-01 08:00 → STU 06-03 18:28
PROVIDERS: ADMIT Internal Medicine; ATTEND Internal Medicine
PROC: B54MZZA Ultrasonography of Right Upper Extremity Veins, Guidance (ICD-10-PCS; principal; 2019-05-31)
PROC: 05HY33Z Insertion of Infusion Device into Upper Vein, Percutaneous Approach (ICD-10-PCS; 2019-05-31)
DX: A41.9 Sepsis, unspecified organism (principal); R53.2 Functional quadriplegia; J96.01 Acute respiratory failure with hypoxia; I50.33 Acute on chronic diastolic (congestive) heart failure; J69.0 Pneumonitis due to inhalation of food and vomit; N39.0 Urinary tract infection, site not specified; E46 Unspecified protein-calorie malnutrition; E87.1 Hypo-osmolality and hyponatremia; I13.0 Hypertensive heart and chronic kidney disease with heart failure and stage 1 through stage 4 chronic kidney disease, or unspecified chronic kidney disease; K56.7 Ileus, unspecified; N17.9 Acute kidney failure, unspecified; N18.4 Chronic kidney disease, stage 4 (severe); D61.818 Other pancytopenia; E03.9 Hypothyroidism, unspecified; E78.5 Hyperlipidemia, unspecified; F20.9 Schizophrenia, unspecified; F79 Unspecified intellectual disabilities; B96.1 Klebsiella pneumoniae [K. pneumoniae] as the cause of diseases classified elsewhere; T42.0X5A Adverse effect of hydantoin derivatives, initial encounter; G40.909 Epilepsy, unspecified, not intractable, without status epilepticus; I48.0 Paroxysmal atrial fibrillation; R13.10 Dysphagia, unspecified; K21.9 Gastro-esophageal reflux disease without esophagitis; E87.8 Other disorders of electrolyte and fluid balance, not elsewhere classified; Z88.1 Allergy status to other antibiotic agents; Z88.8 Allergy status to other drugs, medicaments and biological substances; Z79.899 Other long term (current) drug therapy; Z68.24 Body mass index [BMI] 24.0-24.9, adult; Y92.89 Other specified places as the place of occurrence of the external cause
CPT/HCPCS: 36415; 36600; 71045; 74018; 76700-TC; 76770; 80048; 80053; 80162-TC; 80185-TC; 81000-TC; 82272; 82607; 82728; 82746; 82803-TC; 83540-TC; 83550-TC; 83605; 83735-TC; 83880; 84100-TC; 84443-TC; 84484; 85007; 85025; 85027; 85610-TC; 85730-TC; 87040-TC; 87081; 87086; 87186-TC; 93005; 93306; 94640; 94760; 96365; 99291; C1751; G0378; J0696; J0885; J1160; J1644; J1940; J2765; J3430; J3490; J7030; J7060; J7613; J7614; P9046

== ENCOUNTER 2019-07-20 07:53 | Inpatient (IN) | payer OTHER, MEDICAID ==
[~2019-07-20] VITALS: Ht 165.1 cm; Wt 81.2 kg
[2019-07-20] VITALS (15 sets, daily range): BP systolic 116–170
[~2019-07-20 07:53] MED LIST: ALBU2.5V7 INH; AMLO5TAB92 GT; ASCO500S10 GT; BIOT25008 GT; BISA10SU61 RC; CETI10CA GT; CLOB10TA GT; CRAN450C GT; DENO60DI SUBCUT; ERGO400T7 GT; FER300L GT; HYDR-4037 GT; IMO2 GT; LACO100T2 GT; LEVE1000 GT; LORA-258 IM; MULT-1145 GT; OMEP20CA11 GT; ONDA4TAB5 PO; PHEN100O4 GT; POLY17PO4 GT; ROBAC GT; SODI650T GT; TRI48 GT; TYLL650 GT; WHEY227P GT; [UNRECOGNIZED DRUG - CODE] IJ; [UNRECOGNIZED DRUG - CODE] TP; sodium chloride GT
[2019-07-20] MEDS ORDERED: ACET325C6 GT (09:05)
[2019-07-20] MEDS ORDERED: BISA-95 PR (09:05)
[2019-07-20] MEDS ORDERED: CHLO473M12 PO (09:05)
[2019-07-20] MEDS ORDERED: NA P135E3 PR (09:05)
[2019-07-20] MEDS ORDERED: CLOT15CR5 TP (09:05)
[2019-07-20] MEDS ORDERED: LOPE-178 GT (09:05)
[2019-07-20] MEDS ORDERED: [UNRECOGNIZED DRUG - OTHER] EACH EAR (09:05)
[2019-07-20] MEDS ORDERED: DEXTROMETHORPHAN GT (09:05)
[2019-07-20] MEDS ORDERED: CALAZIME TP (09:05)
[2019-07-20] MEDS ORDERED: [UNRECOGNIZED DRUG - CODE] TP (09:05)
[2019-07-20] MEDS ORDERED: ZINC113O4 TP (09:05)
[2019-07-20] MEDS ORDERED: GUAIFENESIN GT (09:05)
[2019-07-20 09:18] LABS: BASOPHILS % (AUTO) 0.2 % (0.0-2.0); EOSINOPHILS # (AUTO) 0.5 K/uL (0.0-0.4); HEMATOCRIT 25.4 % (36-54); HEMOGLOBIN 8.6 g/dL (14.0-18.0); LYMPHOCYTES # (AUTO) 0.5 K/uL (1.0-5.5); LYMPHOCYTES % (AUTO) 4.9 % (20.5-51.5); MEAN CORPUSCULAR HEMOGLOBIN 36 pg (27-31); MEAN CORPUSCULAR HGB CONC 34 % (32-36); MEAN CORPUSCULAR VOLUME 106 fL (79.0-98.0); MONOCYTES # (AUTO) 0.4 K/uL (0.0-1.0); MONOCYTES % (AUTO) 4.1 % (1.7-9.3); NEUTROPHILS # (AUTO) 8.6 K/uL (1.8-7.7); NEUTROPHILS % (AUTO) 85.8 % (40.0-70.0); PLATELET COUNT (AUTO) 207 K/uL (130-430); RED CELL DISTRIBUTION WIDTH 16.3 % (9.0-15.0)
[2019-07-20 09:33] LABS: INR 1.1 (0.80-1.20); PROTHROMBIN TIME 10.6 SECS (9.5-12.5)
[2019-07-20 09:42] LABS: CALCIUM 11.3 mg/dL (8.4-11.0); CREATININE 2.87 mg/dL (0.55-1.30); POTASSIUM 4.9 mmol/L (3.5-5.1)
[2019-07-20 09:49] LABS: ALBUMIN 2.8 g/dL (3.4-4.8); DIGOXIN 0.2 ng/mL (0.80-2.00); TOTAL BILIRUBIN 0.4 mg/dL (0.0-1.0)
[2019-07-20 09:56] LABS: PHENYTOIN (DILANTIN) 37.4 ug/mL (10.0-20.0)
[2019-07-20] MEDS ORDERED: ATROPINE SULFATE 1 MG/10 ML SYRINGE IVP ONE (12:02)
[2019-07-20] MEDS: ATROPINE SULFATE 1 MG/10 ML SYRINGE IVP PRN ×2 (12:03→16:02)
[2019-07-20] MEDS ORDERED: LORazepam 1 MG TABLET GT PRN (12:15)
[2019-07-20] MEDS ORDERED: ONDANSETRON HCL 4 MG/2 ML VIAL IVP PRN (12:15)
[2019-07-20] MEDS ORDERED: ACETAMINOPHEN 325 MG TABLET PO PRN (12:15)
[2019-07-20] MEDS ORDERED: ALBUTEROL SULFATE 0.083% 2.5 MG/3 ML VIAL.NEB INH PRN (12:15)
[2019-07-20] MEDS ORDERED: SODIUM PHOSPHATE,MONO-DIBASIC 133 ML ENEMA RC PRN (12:15)
[2019-07-20] MEDS ORDERED: LOPERAMIDE HCL 2 MG CAPSULE GT PRN (12:15)
[2019-07-20] MEDS: NACL 0.9% 1,000 ML IV SCH (12:31)
[2019-07-20] MEDS ORDERED: VANCOMYCIN HCL 1,500 MG in NS 250 ML IV ONE (15:00)
[2019-07-20] MEDS: IPRATROPIUM BROM 0.5 MG/2.5 ML VIAL.NEB (ATROVENT) INH SCH ×2 (15:18→19:43)
[2019-07-20] MEDS: ALBUTEROL SULFATE 0.083% 2.5 MG/3 ML VIAL.NEB INH SCH ×2 (15:18→19:43)
[2019-07-20] MEDS: FERROUS SULFATE 300 MG/5 ML UDC GT SCH ×2 (15:51→20:31)
[2019-07-20] MEDS: SODIUM BICARBONATE 650 MG TABLET GT SCH ×2 (15:51→20:26)
[2019-07-20] MEDS: CEFEPIME 0.5 GM in D5W 50 ML IV SCH (15:51)
[2019-07-20] MEDS: LevETIRAcetam 500 MG/5 ML UDC ORAL LIQUID GT SCH (17:49)
[2019-07-20 19:48] LABS: CALCIUM 10.7 mg/dL (8.4-11.0); CREATININE 2.76 mg/dL (0.55-1.30); POTASSIUM 4.8 mmol/L (3.5-5.1)
[2019-07-20] MEDS: POLYETHYLENE GLYCOL 3350, 17 GM/ POWD.PACK GT SCH (20:26)
[2019-07-20] MEDS: LACOSAMIDE 100 MG TABLET GT SCH (20:26)
[2019-07-20] MEDS: CLOTRIMAZOLE/BETAMET DIPROP 15 GM TUBE TP SCH (20:27)
[2019-07-20 23:26] LABS: BILIRUBIN,URINE NEGATIVE (NEGATIVE); BLOOD, URINE 1+ (NEGATIVE); CLARITY/URINE CLOUDY (CLEAR); COLOR,URINE YELLOW (YELLOW); GLUCOSE,URINE NEGATIVE (NEGATIVE); KETONES,URINE NEGATIVE (NEGATIVE); LEUKOCYTE ESTERASE ,URINE 3+ (NEGATIVE); NITRITE, URINE NEGATIVE (NEGATIVE); PH,URINE 5.5 (5.0-8.0); PROTEIN URINE 2+ (NEGATIVE); UROBILINOGEN,URINE 0.2 (0.2-1.0)
[2019-07-20 23:33] LABS: BACTERIA,URINE MANY /HPF (None Seen); WBC,URINE >100 /HPF (0-3)
[2019-07-21] VITALS (24 sets, daily range): BP systolic 111–166
[2019-07-21] MEDS: NACL 0.9% 1,000 ML IV SCH ×3 (04:55→22:21)
[2019-07-21 05:57] LABS: EOSINOPHILS # (AUTO) 0.3 K/uL (0.0-0.4); LYMPHOCYTES # (AUTO) 0.4 K/uL (1.0-5.5); MONOCYTES # (AUTO) 0.5 K/uL (0.0-1.0); RED BLOOD CELL COUNT(AUTO) 2.36 MIL/uL (4.2-6.2)
[2019-07-21 06:04] LABS: BASOPHILS # (AUTO) 0.1 K/uL (0.0-0.2); BASOPHILS % (AUTO) 0.5 % (0.0-2.0); EOSINOPHILS % (AUTO) 2.3 % (0.0-4.0); HEMATOCRIT 24.7 % (36-54); HEMOGLOBIN 8.3 g/dL (14.0-18.0); LYMPHOCYTES % (AUTO) 3.7 % (20.5-51.5); MEAN CORPUSCULAR HEMOGLOBIN 35 pg (27-31); MEAN CORPUSCULAR HGB CONC 34 % (32-36); MEAN CORPUSCULAR VOLUME 105 fL (79.0-98.0); MONOCYTES % (AUTO) 4.5 % (1.7-9.3); NEUTROPHILS # (AUTO) 10.3 K/uL (1.8-7.7); PLATELET COUNT (AUTO) 225 K/uL (130-430); RED CELL DISTRIBUTION WIDTH 17.1 % (9.0-15.0); WHITE BLOOD COUNT (AUTO) 11.6 K/uL (4.8-10.8)
[2019-07-21 06:56] LABS: ALBUMIN 2.7 g/dL (3.4-4.8); CALCIUM 10.1 mg/dL (8.4-11.0); CREATININE 2.64 mg/dL (0.55-1.30); PHOSPHORUS 4.8 mg/dL (2.7-4.5); POTASSIUM 4.9 mmol/L (3.5-5.1); THYROID STIMULATING HORMONE 4.78 uIu/mL (0.36-3.74); TOTAL BILIRUBIN 0.3 mg/dL (0.0-1.0)
[2019-07-21 07:29] LABS: PHENYTOIN (DILANTIN) 36.5 ug/mL (10.0-20.0)
[2019-07-21 07:38] LABS: VANCOMYCIN,RANDOM 23.6 ug/mL
[2019-07-21] MEDS: IPRATROPIUM BROM 0.5 MG/2.5 ML VIAL.NEB (ATROVENT) INH SCH ×4 (07:56→19:38)
[2019-07-21] MEDS: ALBUTEROL SULFATE 0.083% 2.5 MG/3 ML VIAL.NEB INH SCH ×4 (07:56→19:37)
[2019-07-21] MEDS ORDERED: EPOETIN ALFA 3,000 UNITS/ML VIAL SUBCUT SCH (09:00)
[2019-07-21] MEDS: CHLORHEXIDINE GLUCONATE 15 ML/DOSE, 480 ML MM SCH (09:32)
[2019-07-21] MEDS: MULTIVIT-MINERALS/FERROUS GLUC 15 ML UDC GT SCH (09:32)
[2019-07-21] MEDS: LANSOPRAZOLE 30 MG CAPSULE.DR GT SCH (09:32)
[2019-07-21] MEDS: SODIUM BICARBONATE 650 MG TABLET GT SCH ×3 (09:32→22:20)
[2019-07-21] MEDS: FERROUS SULFATE 300 MG/5 ML UDC GT SCH ×3 (09:32→22:20)
[2019-07-21] MEDS: POLYETHYLENE GLYCOL 3350, 17 GM/ POWD.PACK GT SCH ×2 (09:33→22:20)
[2019-07-21] MEDS: LevETIRAcetam 500 MG/5 ML UDC ORAL LIQUID GT SCH ×2 (09:33→17:00)
[2019-07-21] MEDS: CLOTRIMAZOLE/BETAMET DIPROP 15 GM TUBE TP SCH ×2 (09:33→22:22)
[2019-07-21] MEDS: LACOSAMIDE 100 MG TABLET GT SCH ×2 (09:33→22:20)
[2019-07-21] MEDS: FENOFIBRATE NANOCRYSTALLIZED 48 MG TABLET (TRICOR) GT SCH (09:33)
[2019-07-21] MEDS: EPOETIN ALFA 3,000 UNITS/ML VIAL SUBCUT SCH (09:39)
[2019-07-21] MEDS: EPOETIN ALFA 2,000 UNITS/ML VIAL SUBCUT SCH (09:39)
[2019-07-21] MEDS: guaiFENesin 200 MG/CODEINE 20 MG/ 10 ML UDC GT PRN (10:10)
[2019-07-21] MEDS ORDERED: LEVOTHYROXINE SODIUM 0.1 MG VIAL IVP ONE (13:00)
[2019-07-21] MEDS ORDERED: THEOPHYLLINE ANHYDROUS 200 MG CAP.ER.24H PO ONE (14:00)
[2019-07-21] MEDS: CEFEPIME 0.5 GM in D5W 50 ML IV SCH (15:21)
[2019-07-21] MEDS: MUPIROCIN 1 GM OIN.PF.APP NS SCH ×2 (17:45→21:00)
[2019-07-21] MEDS: THEOPHYLLINE ANHYDROUS 200 MG CAP.ER.24H PO SCH (22:20)
[2019-07-22] VITALS (16 sets, daily range): BP systolic 113–166
[2019-07-22] MEDS: guaiFENesin 200 MG/CODEINE 20 MG/ 10 ML UDC GT PRN (04:21)
[2019-07-22] MEDS: NACL 0.9% 1,000 ML IV SCH ×2 (04:22→15:11)
[2019-07-22 06:58] LABS: ALBUMIN 2.4 g/dL (3.4-4.8); CALCIUM 9.4 mg/dL (8.4-11.0); CREATININE 2.8 mg/dL (0.55-1.30); PHOSPHORUS 4.6 mg/dL (2.7-4.5); POTASSIUM 4.7 mmol/L (3.5-5.1); TOTAL BILIRUBIN 0.3 mg/dL (0.0-1.0); VANCOMYCIN,RANDOM 19.1 ug/mL
[2019-07-22 07:30] LABS: BASOPHILS % (AUTO) 0.3 % (0.0-2.0); EOSINOPHILS # (AUTO) 0.1 K/uL (0.0-0.4); EOSINOPHILS % (AUTO) 1.8 % (0.0-4.0); HEMATOCRIT 22.6 % (36-54); HEMOGLOBIN 7.6 g/dL (14.0-18.0); LYMPHOCYTES # (AUTO) 0.5 K/uL (1.0-5.5); LYMPHOCYTES % (AUTO) 7.4 % (20.5-51.5); MEAN CORPUSCULAR HEMOGLOBIN 36 pg (27-31); MEAN CORPUSCULAR HGB CONC 33 % (32-36); MEAN CORPUSCULAR VOLUME 107 fL (79.0-98.0); MONOCYTES # (AUTO) 0.5 K/uL (0.0-1.0); MONOCYTES % (AUTO) 7.6 % (1.7-9.3); NEUTROPHILS # (AUTO) 5.9 K/uL (1.8-7.7); NEUTROPHILS % (AUTO) 82.9 % (40.0-70.0); PLATELET COUNT (AUTO) 231 K/uL (130-430); RED BLOOD CELL COUNT(AUTO) 2.11 MIL/uL (4.2-6.2); RED CELL DISTRIBUTION WIDTH 16.8 % (9.0-15.0); WHITE BLOOD COUNT (AUTO) 7.2 K/uL (4.8-10.8)
[2019-07-22 07:34] LABS: PHENYTOIN (DILANTIN) 32.5 ug/mL (10.0-20.0)
[2019-07-22] MEDS: LACOSAMIDE 100 MG TABLET GT SCH ×2 (09:16→20:52)
[2019-07-22] MEDS: LEVOTHYROXINE SODIUM 0.1 MG VIAL IVP SCH (09:17)
[2019-07-22] MEDS: POLYETHYLENE GLYCOL 3350, 17 GM/ POWD.PACK GT SCH ×2 (09:17→20:29)
[2019-07-22] MEDS: SODIUM BICARBONATE 650 MG TABLET GT SCH ×3 (09:18→20:29)
[2019-07-22] MEDS: FERROUS SULFATE 300 MG/5 ML UDC GT SCH ×3 (09:18→20:28)
[2019-07-22] MEDS: MULTIVIT-MINERALS/FERROUS GLUC 15 ML UDC GT SCH (09:18)
[2019-07-22] MEDS: LANSOPRAZOLE 30 MG CAPSULE.DR GT SCH (09:18)
[2019-07-22] MEDS: LevETIRAcetam 500 MG/5 ML UDC ORAL LIQUID GT SCH ×2 (09:19→18:08)
[2019-07-22] MEDS: FENOFIBRATE NANOCRYSTALLIZED 48 MG TABLET (TRICOR) GT SCH (09:20)
[2019-07-22] MEDS: MUPIROCIN 2% TOPICAL OINTMENT 22 GM NS SCH ×2 (09:21→20:29)
[2019-07-22] MEDS: CHLORHEXIDINE GLUCONATE 15 ML/DOSE, 480 ML MM SCH (09:21)
[2019-07-22] MEDS: THEOPHYLLINE ANHYDROUS 200 MG CAP.ER.24H PO SCH ×2 (09:22→20:30)
[2019-07-22] MEDS: CLOTRIMAZOLE/BETAMET DIPROP 15 GM TUBE TP SCH ×2 (09:22→20:53)
[2019-07-22] MEDS: ALBUTEROL SULFATE 0.083% 2.5 MG/3 ML VIAL.NEB INH SCH ×3 (12:18→20:02)
[2019-07-22] MEDS: IPRATROPIUM BROM 0.5 MG/2.5 ML VIAL.NEB (ATROVENT) INH SCH ×3 (12:18→20:02)
[2019-07-22] MEDS ORDERED: MAGNESIUM CITRATE 300 ML ORAL SOLUTION PO ONE (12:30)
[2019-07-22] MEDS: CEFEPIME 0.5 GM in D5W 50 ML IV SCH (15:29)
[2019-07-23 00:13] VITALS: BP_SYST 132
[2019-07-23] MEDS: NACL 0.9% 1,000 ML IV SCH (02:02)
[2019-07-23] MEDS: ALBUTEROL SULFATE 0.083% 2.5 MG/3 ML VIAL.NEB INH SCH ×4 (07:48→20:02)
[2019-07-23] MEDS: IPRATROPIUM BROM 0.5 MG/2.5 ML VIAL.NEB (ATROVENT) INH SCH ×4 (07:49→20:07)
[2019-07-23 08:04] VITALS: BP_SYST 131
[2019-07-23] MEDS: LACOSAMIDE 100 MG TABLET GT SCH ×2 (08:42→20:55)
[2019-07-23] MEDS: LEVOTHYROXINE SODIUM 0.1 MG VIAL IVP SCH (08:42)
[2019-07-23] MEDS: FERROUS SULFATE 300 MG/5 ML UDC GT SCH ×3 (08:42→20:55)
[2019-07-23] MEDS: POLYETHYLENE GLYCOL 3350, 17 GM/ POWD.PACK GT SCH ×2 (08:43→20:55)
[2019-07-23] MEDS: SODIUM BICARBONATE 650 MG TABLET GT SCH (08:43)
[2019-07-23] MEDS: THEOPHYLLINE ANHYDROUS 200 MG CAP.ER.24H PO SCH ×2 (08:43→20:56)
[2019-07-23] MEDS: LANSOPRAZOLE 30 MG CAPSULE.DR GT SCH (08:44)
[2019-07-23] MEDS: MULTIVIT-MINERALS/FERROUS GLUC 15 ML UDC GT SCH (08:44)
[2019-07-23] MEDS: FENOFIBRATE NANOCRYSTALLIZED 48 MG TABLET (TRICOR) GT SCH (08:44)
[2019-07-23] MEDS: MUPIROCIN 2% TOPICAL OINTMENT 22 GM NS SCH ×2 (08:45→20:58)
[2019-07-23] MEDS: CHLORHEXIDINE GLUCONATE 15 ML/DOSE, 480 ML MM SCH (08:45)
[2019-07-23] MEDS: CLOTRIMAZOLE/BETAMET DIPROP 15 GM TUBE TP SCH ×2 (08:45→20:58)
[2019-07-23] MEDS: LevETIRAcetam 500 MG/5 ML UDC ORAL LIQUID GT SCH ×2 (08:46→17:06)
[2019-07-23 08:52] LABS: BASOPHILS % (AUTO) 0.3 % (0.0-2.0); EOSINOPHILS # (AUTO) 0.3 K/uL (0.0-0.4); EOSINOPHILS % (AUTO) 2.1 % (0.0-4.0); HEMATOCRIT 23.7 % (36-54); HEMOGLOBIN 7.9 g/dL (14.0-18.0); LYMPHOCYTES # (AUTO) 0.5 K/uL (1.0-5.5); LYMPHOCYTES % (AUTO) 3.9 % (20.5-51.5); MEAN CORPUSCULAR HEMOGLOBIN 35 pg (27-31); MEAN CORPUSCULAR HGB CONC 33 % (32-36); MEAN CORPUSCULAR VOLUME 106 fL (79.0-98.0); MONOCYTES # (AUTO) 0.9 K/uL (0.0-1.0); MONOCYTES % (AUTO) 7.1 % (1.7-9.3); NEUTROPHILS # (AUTO) 10.4 K/uL (1.8-7.7); NEUTROPHILS % (AUTO) 86.6 % (40.0-70.0); PLATELET COUNT (AUTO) 247 K/uL (130-430); RED BLOOD CELL COUNT(AUTO) 2.23 MIL/uL (4.2-6.2)
[2019-07-23 08:55] LABS: RED CELL DISTRIBUTION WIDTH 16.6 % (9.0-15.0)
[2019-07-23 08:59] LABS: ALBUMIN 2.6 g/dL (3.4-4.8); CALCIUM 9.1 mg/dL (8.4-11.0); CREATININE 2.82 mg/dL (0.55-1.30); POTASSIUM 4.5 mmol/L (3.5-5.1); TOTAL BILIRUBIN 0.2 mg/dL (0.0-1.0)
[2019-07-23] MEDS ORDERED: VANCOMYCIN HCL 1,000 MG in NS 250 ML IV ONE (10:00)
[2019-07-23] MEDS ORDERED: FUROSEMIDE 40 MG/4 ML VIAL IVP ONE (10:15)
[2019-07-23 11:09] VITALS: BP_SYST 144
[2019-07-23] MEDS: CEFEPIME 0.5 GM in D5W 50 ML IV SCH (14:23)
[2019-07-23 15:16] VITALS: BP_SYST 127
[2019-07-23 17:16] LABS: HEMATOCRIT 24.3 % (36-54); HEMOGLOBIN 8.1 g/dL (14.0-18.0); MEAN CORPUSCULAR HEMOGLOBIN 36 pg (27-31); MEAN CORPUSCULAR HGB CONC 34 % (32-36); MEAN CORPUSCULAR VOLUME 108 fL (79.0-98.0); PLATELET COUNT (AUTO) 215 K/uL (130-430); RED BLOOD CELL COUNT(AUTO) 2.24 MIL/uL (4.2-6.2); RED CELL DISTRIBUTION WIDTH 17.1 % (9.0-15.0); WHITE BLOOD COUNT (AUTO) 8.6 K/uL (4.8-10.8)
[2019-07-23 18:15] VITALS: BP_SYST 127
[2019-07-23 18:43] LABS: BAND % (MANUAL) 12 % (0-6); BASOPHILS % (MANUAL) 0 % (0-2); EOSINOPHILS % (MANUAL) 2 % (0-7); LYMPHOCYTES % (MANUAL) 9 % (20-46); MONOCYTES % (MANUAL) 8 % (0-11)
[2019-07-23 20:30] VITALS: BP_SYST 120
[2019-07-24 00:25] VITALS: BP_SYST 104
[2019-07-24] MEDS: IPRATROPIUM BROM 0.5 MG/2.5 ML VIAL.NEB (ATROVENT) INH SCH ×4 (07:29→19:36)
[2019-07-24] MEDS: ALBUTEROL SULFATE 0.083% 2.5 MG/3 ML VIAL.NEB INH SCH ×4 (07:30→19:36)
[2019-07-24 08:02] VITALS: BP_SYST 137
[2019-07-24 08:46] LABS: BASOPHILS % (AUTO) 0.3 % (0.0-2.0); EOSINOPHILS # (AUTO) 0.6 K/uL (0.0-0.4); EOSINOPHILS % (AUTO) 9.7 % (0.0-4.0); HEMATOCRIT 23.9 % (36-54); LYMPHOCYTES # (AUTO) 0.3 K/uL (1.0-5.5); LYMPHOCYTES % (AUTO) 5.2 % (20.5-51.5); MEAN CORPUSCULAR HEMOGLOBIN 36 pg (27-31); MEAN CORPUSCULAR HGB CONC 34 % (32-36); MEAN CORPUSCULAR VOLUME 108 fL (79.0-98.0); MONOCYTES # (AUTO) 0.6 K/uL (0.0-1.0); NEUTROPHILS % (AUTO) 75.8 % (40.0-70.0); PLATELET COUNT (AUTO) 221 K/uL (130-430); RED BLOOD CELL COUNT(AUTO) 2.22 MIL/uL (4.2-6.2); RED CELL DISTRIBUTION WIDTH 16.7 % (9.0-15.0); WHITE BLOOD COUNT (AUTO) 6.6 K/uL (4.8-10.8)
[2019-07-24] MEDS: LevETIRAcetam 500 MG/5 ML UDC ORAL LIQUID GT SCH ×2 (09:13→17:44)
[2019-07-24] MEDS: THEOPHYLLINE ANHYDROUS 200 MG CAP.ER.24H PO SCH ×2 (09:14→20:09)
[2019-07-24] MEDS: LEVOTHYROXINE SODIUM 0.1 MG VIAL IVP SCH (09:14)
[2019-07-24] MEDS: CHLORHEXIDINE GLUCONATE 15 ML/DOSE, 480 ML MM SCH (09:15)
[2019-07-24] MEDS: POLYETHYLENE GLYCOL 3350, 17 GM/ POWD.PACK GT SCH ×2 (09:15→20:08)
[2019-07-24] MEDS: FERROUS SULFATE 300 MG/5 ML UDC GT SCH ×3 (09:16→20:08)
[2019-07-24] MEDS: EPOETIN ALFA 3,000 UNITS/ML VIAL SUBCUT SCH (09:16)
[2019-07-24] MEDS: FENOFIBRATE NANOCRYSTALLIZED 48 MG TABLET (TRICOR) GT SCH (09:16)
[2019-07-24] MEDS: MULTIVIT-MINERALS/FERROUS GLUC 15 ML UDC GT SCH (09:16)
[2019-07-24] MEDS: EPOETIN ALFA 2,000 UNITS/ML VIAL SUBCUT SCH (09:16)
[2019-07-24] MEDS: LANSOPRAZOLE 30 MG CAPSULE.DR GT SCH (09:16)
[2019-07-24] MEDS: CLOTRIMAZOLE/BETAMET DIPROP 15 GM TUBE TP SCH ×2 (09:17→20:10)
[2019-07-24] MEDS: MUPIROCIN 2% TOPICAL OINTMENT 22 GM NS SCH ×2 (09:17→20:10)
[2019-07-24 09:31] LABS: ALBUMIN 2.4 g/dL (3.4-4.8); CALCIUM 9.7 mg/dL (8.4-11.0); CREATININE 2.66 mg/dL (0.55-1.30); PHENYTOIN (DILANTIN) 23.6 ug/mL (10.0-20.0); POTASSIUM 3.9 mmol/L (3.5-5.1); TOTAL BILIRUBIN 0.2 mg/dL (0.0-1.0); VANCOMYCIN,RANDOM 25.5 ug/mL
[2019-07-24] MEDS: LACOSAMIDE 100 MG TABLET GT SCH ×2 (09:49→20:08)
[2019-07-24] MEDS ORDERED: FUROSEMIDE 40 MG/4 ML VIAL IVP ONE (11:00)
[2019-07-24 12:25] VITALS: BP_SYST 143
[2019-07-24] MEDS: CEFEPIME 0.5 GM in D5W 50 ML IV SCH (14:16)
[2019-07-24 16:40] VITALS: BP_SYST 135
[2019-07-24 19:55] VITALS: BP_SYST 125
[2019-07-25 00:02] VITALS: BP_SYST 139
[2019-07-25 07:05] LABS: BASOPHILS % (AUTO) 0.2 % (0.0-2.0); EOSINOPHILS # (AUTO) 0.9 K/uL (0.0-0.4); EOSINOPHILS % (AUTO) 12.5 % (0.0-4.0); HEMATOCRIT 23.8 % (36-54); LYMPHOCYTES # (AUTO) 0.4 K/uL (1.0-5.5); MEAN CORPUSCULAR HEMOGLOBIN 36 pg (27-31); MEAN CORPUSCULAR HGB CONC 34 % (32-36); MEAN CORPUSCULAR VOLUME 108 fL (79.0-98.0); MONOCYTES # (AUTO) 0.8 K/uL (0.0-1.0); MONOCYTES % (AUTO) 10.7 % (1.7-9.3); NEUTROPHILS % (AUTO) 70.6 % (40.0-70.0); PLATELET COUNT (AUTO) 222 K/uL (130-430); RED BLOOD CELL COUNT(AUTO) 2.21 MIL/uL (4.2-6.2); RED CELL DISTRIBUTION WIDTH 16.8 % (9.0-15.0); WHITE BLOOD COUNT (AUTO) 7.1 K/uL (4.8-10.8)
[2019-07-25] MEDS: IPRATROPIUM BROM 0.5 MG/2.5 ML VIAL.NEB (ATROVENT) INH SCH ×4 (08:01→19:50)
[2019-07-25] MEDS: ALBUTEROL SULFATE 0.083% 2.5 MG/3 ML VIAL.NEB INH SCH ×4 (08:01→19:50)
[2019-07-25 08:45] LABS: ALBUMIN 2.3 g/dL (3.4-4.8); CALCIUM 9.3 mg/dL (8.4-11.0); CREATININE 2.58 mg/dL (0.55-1.30); POTASSIUM 3.8 mmol/L (3.5-5.1); TOTAL BILIRUBIN 0.2 mg/dL (0.0-1.0)
[2019-07-25 08:49] VITALS: BP_SYST 142
[2019-07-25] MEDS: THEOPHYLLINE ANHYDROUS 200 MG CAP.ER.24H PO SCH (08:51)
[2019-07-25] MEDS: LEVOTHYROXINE SODIUM 0.1 MG VIAL IVP SCH (08:51)
[2019-07-25] MEDS: LevETIRAcetam 500 MG/5 ML UDC ORAL LIQUID GT SCH ×2 (08:51→17:20)
[2019-07-25] MEDS: MULTIVIT-MINERALS/FERROUS GLUC 15 ML UDC GT SCH (08:51)
[2019-07-25] MEDS: FERROUS SULFATE 300 MG/5 ML UDC GT SCH ×3 (08:52→20:34)
[2019-07-25] MEDS: LACOSAMIDE 100 MG TABLET GT SCH ×2 (08:52→20:34)
[2019-07-25] MEDS: POLYETHYLENE GLYCOL 3350, 17 GM/ POWD.PACK GT SCH ×2 (08:52→20:34)
[2019-07-25] MEDS: CLOTRIMAZOLE/BETAMET DIPROP 15 GM TUBE TP SCH ×2 (08:53→20:35)
[2019-07-25] MEDS: FENOFIBRATE NANOCRYSTALLIZED 48 MG TABLET (TRICOR) GT SCH (08:53)
[2019-07-25] MEDS: LANSOPRAZOLE 30 MG CAPSULE.DR GT SCH (08:53)
[2019-07-25] MEDS: MUPIROCIN 2% TOPICAL OINTMENT 22 GM NS SCH ×2 (08:53→20:35)
[2019-07-25] MEDS: CHLORHEXIDINE GLUCONATE 15 ML/DOSE, 480 ML MM SCH (08:54)
[2019-07-25] MEDS ORDERED: VANCOMYCIN HCL 1 GM/NS PREMIX 250 ML IV ONE (10:00)
[2019-07-25 11:35] VITALS: BP_SYST 140
[2019-07-25] MEDS: CEFEPIME 0.5 GM in D5W 50 ML IV SCH (14:26)
[2019-07-25 15:04] VITALS: BP_SYST 138
[2019-07-25 15:37] LABS: PHENYTOIN (DILANTIN) 19.9 ug/mL (10.0-20.0)
[2019-07-25 20:29] VITALS: BP_SYST 150
[2019-07-26 00:31] VITALS: BP_SYST 149
[2019-07-26 06:56] LABS: BASOPHILS % (AUTO) 0.6 % (0.0-2.0); EOSINOPHILS # (AUTO) 0.6 K/uL (0.0-0.4); EOSINOPHILS % (AUTO) 8.3 % (0.0-4.0); HEMATOCRIT 22.9 % (36-54); HEMOGLOBIN 7.8 g/dL (14.0-18.0); LYMPHOCYTES # (AUTO) 0.7 K/uL (1.0-5.5); LYMPHOCYTES % (AUTO) 9.2 % (20.5-51.5); MEAN CORPUSCULAR HEMOGLOBIN 37 pg (27-31); MEAN CORPUSCULAR HGB CONC 34 % (32-36); MONOCYTES # (AUTO) 1.2 K/uL (0.0-1.0); MONOCYTES % (AUTO) 16.3 % (1.7-9.3); NEUTROPHILS # (AUTO) 4.9 K/uL (1.8-7.7); NEUTROPHILS % (AUTO) 65.6 % (40.0-70.0); PLATELET COUNT (AUTO) 230 K/uL (130-430); RED BLOOD CELL COUNT(AUTO) 2.11 MIL/uL (4.2-6.2); RED CELL DISTRIBUTION WIDTH 16.2 % (9.0-15.0); WHITE BLOOD COUNT (AUTO) 7.5 K/uL (4.8-10.8)
[2019-07-26 07:05] LABS: CALCIUM 11.1 mg/dL (8.4-11.0); CREATININE 2.82 mg/dL (0.55-1.30); PHENYTOIN (DILANTIN) 15.3 ug/mL (10.0-20.0); POTASSIUM 3.9 mmol/L (3.5-5.1)
[2019-07-26] MEDS: ALBUTEROL SULFATE 0.083% 2.5 MG/3 ML VIAL.NEB INH SCH ×4 (07:15→19:20)
[2019-07-26] MEDS: IPRATROPIUM BROM 0.5 MG/2.5 ML VIAL.NEB (ATROVENT) INH SCH ×4 (07:16→19:20)
[2019-07-26 07:55] VITALS: BP_SYST 123
[2019-07-26 08:20] LABS: MEAN CORPUSCULAR VOLUME 108 fL (79.0-98.0)
[2019-07-26] MEDS: FERROUS SULFATE 300 MG/5 ML UDC GT SCH ×3 (09:31→21:44)
[2019-07-26] MEDS: PHENYTOIN 100 MG/4 ML UDC (DILANTIN) GT SCH ×3 (09:31→21:43)
[2019-07-26] MEDS: POLYETHYLENE GLYCOL 3350, 17 GM/ POWD.PACK GT SCH ×2 (09:32→21:44)
[2019-07-26] MEDS: LEVOTHYROXINE SODIUM 0.1 MG VIAL IVP SCH (09:32)
[2019-07-26] MEDS: EPOETIN ALFA 3,000 UNITS/ML VIAL SUBCUT SCH (09:32)
[2019-07-26] MEDS: EPOETIN ALFA 2,000 UNITS/ML VIAL SUBCUT SCH (09:33)
[2019-07-26] MEDS: FENOFIBRATE NANOCRYSTALLIZED 48 MG TABLET (TRICOR) GT SCH (09:33)
[2019-07-26] MEDS: LANSOPRAZOLE 30 MG CAPSULE.DR GT SCH (09:33)
[2019-07-26] MEDS: LevETIRAcetam 500 MG/5 ML UDC ORAL LIQUID GT SCH ×2 (09:33→18:16)
[2019-07-26] MEDS: MULTIVIT-MINERALS/FERROUS GLUC 15 ML UDC GT SCH (09:33)
[2019-07-26] MEDS: CLOTRIMAZOLE/BETAMET DIPROP 15 GM TUBE TP SCH ×2 (09:35→21:45)
[2019-07-26] MEDS: MUPIROCIN 2% TOPICAL OINTMENT 22 GM NS SCH (09:35)
[2019-07-26] MEDS: CHLORHEXIDINE GLUCONATE 15 ML/DOSE, 480 ML MM SCH (09:35)
[2019-07-26] MEDS: LACOSAMIDE 100 MG TABLET GT SCH ×2 (10:11→21:45)
[2019-07-26 11:19] VITALS: BP_SYST 126
[2019-07-26 15:03] VITALS: BP_SYST 127
[2019-07-26] MEDS: CEFEPIME 0.5 GM in D5W 50 ML IV SCH (15:37)
[2019-07-26] MEDS ORDERED: LORazepam 2 MG/ML VIAL IVP PRN ×2 (18:00)
[2019-07-26 20:00] VITALS: BP_SYST 113
[2019-07-27 01:07] VITALS: BP_SYST 116
[2019-07-27 07:09] LABS: BASOPHILS % (AUTO) 0.2 % (0.0-2.0); EOSINOPHILS # (AUTO) 1.2 K/uL (0.0-0.4); EOSINOPHILS % (AUTO) 10.4 % (0.0-4.0); HEMATOCRIT 26.5 % (36-54); HEMOGLOBIN 8.7 g/dL (14.0-18.0); LYMPHOCYTES # (AUTO) 0.6 K/uL (1.0-5.5); LYMPHOCYTES % (AUTO) 4.9 % (20.5-51.5); MEAN CORPUSCULAR HEMOGLOBIN 36 pg (27-31); MEAN CORPUSCULAR HGB CONC 33 % (32-36); MEAN CORPUSCULAR VOLUME 108 fL (79.0-98.0); MONOCYTES # (AUTO) 1.1 K/uL (0.0-1.0); MONOCYTES % (AUTO) 9.6 % (1.7-9.3); NEUTROPHILS # (AUTO) 8.8 K/uL (1.8-7.7); PLATELET COUNT (AUTO) 214 K/uL (130-430); RED BLOOD CELL COUNT(AUTO) 2.44 MIL/uL (4.2-6.2); WHITE BLOOD COUNT (AUTO) 11.8 K/uL (4.8-10.8)
[2019-07-27 07:22] LABS: CALCIUM 11.1 mg/dL (8.4-11.0); CREATININE 2.73 mg/dL (0.55-1.30); POTASSIUM 3.8 mmol/L (3.5-5.1); VANCOMYCIN,RANDOM 18.1 ug/mL
[2019-07-27] MEDS: IPRATROPIUM BROM 0.5 MG/2.5 ML VIAL.NEB (ATROVENT) INH SCH ×4 (07:34→20:03)
[2019-07-27] MEDS: ALBUTEROL SULFATE 0.083% 2.5 MG/3 ML VIAL.NEB INH SCH ×4 (07:34→20:03)
[2019-07-27] MEDS: LEVOTHYROXINE SODIUM 0.1 MG VIAL IVP SCH (10:01)
[2019-07-27] MEDS: PHENYTOIN 100 MG/4 ML UDC (DILANTIN) GT SCH ×3 (10:02→21:41)
[2019-07-27] MEDS: FERROUS SULFATE 300 MG/5 ML UDC GT SCH ×3 (10:02→21:41)
[2019-07-27] MEDS: LANSOPRAZOLE 30 MG CAPSULE.DR GT SCH (10:02)
[2019-07-27] MEDS: FENOFIBRATE NANOCRYSTALLIZED 48 MG TABLET (TRICOR) GT SCH (10:02)
[2019-07-27] MEDS: MULTIVIT-MINERALS/FERROUS GLUC 15 ML UDC GT SCH (10:02)
[2019-07-27] MEDS: LACOSAMIDE 100 MG TABLET GT SCH ×2 (10:02→21:49)
[2019-07-27] MEDS: LevETIRAcetam 500 MG/5 ML UDC ORAL LIQUID GT SCH ×2 (10:03→17:59)
[2019-07-27] MEDS: POLYETHYLENE GLYCOL 3350, 17 GM/ POWD.PACK GT SCH ×2 (10:03→21:41)
[2019-07-27] MEDS: CHLORHEXIDINE GLUCONATE 15 ML/DOSE, 480 ML MM SCH (10:03)
[2019-07-27] MEDS: CLOTRIMAZOLE/BETAMET DIPROP 15 GM TUBE TP SCH ×2 (10:04→21:43)
[2019-07-27 11:01] LABS: NEUTROPHILS % (AUTO) 74.9 % (40.0-70.0)
[2019-07-27 12:40] VITALS: BP_SYST 149
[2019-07-27 16:00] VITALS: BP_SYST 150
[2019-07-27] MEDS ORDERED: VANCOMYCIN HCL 1,000 MG in NS 250 ML IV ONE (18:00)
[2019-07-27 21:36] VITALS: BP_SYST 123
[2019-07-28 00:26] VITALS: BP_SYST 142
[2019-07-28] MEDS: IPRATROPIUM BROM 0.5 MG/2.5 ML VIAL.NEB (ATROVENT) INH SCH ×4 (07:15→19:24)
[2019-07-28] MEDS: ALBUTEROL SULFATE 0.083% 2.5 MG/3 ML VIAL.NEB INH SCH ×4 (07:15→19:24)
[2019-07-28 07:40] LABS: HEMATOCRIT 25.3 % (36-54); HEMOGLOBIN 8.3 g/dL (14.0-18.0); MEAN CORPUSCULAR HEMOGLOBIN 36 pg (27-31); MEAN CORPUSCULAR HGB CONC 33 % (32-36); MEAN CORPUSCULAR VOLUME 108 fL (79.0-98.0); PLATELET COUNT (AUTO) 197 K/uL (130-430); RED BLOOD CELL COUNT(AUTO) 2.33 MIL/uL (4.2-6.2); RED CELL DISTRIBUTION WIDTH 16.9 % (9.0-15.0)
[2019-07-28 07:46] LABS: WHITE BLOOD COUNT (AUTO) 23.5 K/uL (4.8-10.8)
[2019-07-28 07:56] LABS: CALCIUM 11.3 mg/dL (8.4-11.0); CREATININE 2.64 mg/dL (0.55-1.30); POTASSIUM 3.7 mmol/L (3.5-5.1)
[2019-07-28] MEDS: LevETIRAcetam 500 MG/5 ML UDC ORAL LIQUID GT SCH ×2 (09:32→20:15)
[2019-07-28] MEDS: POLYETHYLENE GLYCOL 3350, 17 GM/ POWD.PACK GT SCH ×2 (09:32→22:13)
[2019-07-28] MEDS: FERROUS SULFATE 300 MG/5 ML UDC GT SCH ×3 (09:33→22:13)
[2019-07-28] MEDS: MULTIVIT-MINERALS/FERROUS GLUC 15 ML UDC GT SCH (09:33)
[2019-07-28] MEDS: PHENYTOIN 100 MG/4 ML UDC (DILANTIN) GT SCH ×3 (09:33→22:13)
[2019-07-28] MEDS: FENOFIBRATE NANOCRYSTALLIZED 48 MG TABLET (TRICOR) GT SCH (09:33)
[2019-07-28] MEDS: LANSOPRAZOLE 30 MG CAPSULE.DR GT SCH (09:34)
[2019-07-28] MEDS: LEVOTHYROXINE SODIUM 0.1 MG VIAL IVP SCH (09:35)
[2019-07-28] MEDS: CHLORHEXIDINE GLUCONATE 15 ML/DOSE, 480 ML MM SCH (09:38)
[2019-07-28] MEDS: CLOTRIMAZOLE/BETAMET DIPROP 15 GM TUBE TP SCH ×2 (09:39→22:15)
[2019-07-28] MEDS: LACOSAMIDE 100 MG TABLET GT SCH ×2 (09:52→22:22)
[2019-07-28] MEDS: EPOETIN ALFA 3,000 UNITS/ML VIAL SUBCUT SCH (09:53)
[2019-07-28] MEDS: EPOETIN ALFA 2,000 UNITS/ML VIAL SUBCUT SCH (09:53)
[2019-07-28 12:15] VITALS: BP_SYST 136
[2019-07-28] MEDS ORDERED: methylPREDNISolone SOD SUCC 40 MG/ML VIAL IVP ONE (12:30)
[2019-07-28] MEDS ORDERED: FAMOTIDINE PF 20 MG/2 ML VIAL IVP ONE (12:30)
[2019-07-28] MEDS ORDERED: DIPHENHYDRAMINE INJ 50 MG/ML VIAL IVP ONE (12:45)
[2019-07-28 12:47] LABS: ATYPICAL LYMPHOCYTES % 0 % (0-0); BAND % (MANUAL) 3 % (0-6); LYMPHOCYTES % (MANUAL) 5 % (20-46); MONOCYTES % (MANUAL) 2 % (0-11)
[2019-07-28 12:48] LABS: BASOPHILS % (MANUAL) 0 % (0-2); EOSINOPHILS % (MANUAL) 2 % (0-7)
[2019-07-28 16:18] VITALS: BP_SYST 157
[2019-07-28] MEDS: DIPHENHYDRAMINE INJ 50 MG/ML VIAL IVP SCH ×2 (17:31→23:48)
[2019-07-28 20:00] VITALS: BP_SYST 112
[2019-07-28] MEDS: FAMOTIDINE PF 20 MG/2 ML VIAL IVP SCH (22:14)
[2019-07-28] MEDS: methylPREDNISolone SOD SUCC 40 MG/ML VIAL IVP SCH (22:16)
[2019-07-29 01:01] VITALS: BP_SYST 108
[2019-07-29] MEDS: DIPHENHYDRAMINE INJ 50 MG/ML VIAL IVP SCH ×2 (05:23→13:18)
[2019-07-29 06:01] LABS: BILIRUBIN,URINE NEGATIVE (NEGATIVE); BLOOD, URINE 1+ (NEGATIVE); CLARITY/URINE CLEAR (CLEAR); COLOR,URINE YELLOW (YELLOW); GLUCOSE,URINE NEGATIVE (NEGATIVE); KETONES,URINE NEGATIVE (NEGATIVE); LEUKOCYTE ESTERASE ,URINE 3+ (NEGATIVE); NITRITE, URINE NEGATIVE (NEGATIVE); PROTEIN URINE 2+ (NEGATIVE); UROBILINOGEN,URINE 0.2 (0.2-1.0)
[2019-07-29 06:09] LABS: BACTERIA,URINE MODERATE /HPF (None Seen); WBC,URINE >100 /HPF (0-3)
[2019-07-29 07:32] LABS: ALBUMIN 2.4 g/dL (3.4-4.8); CALCIUM 11.8 mg/dL (8.4-11.0); CREATININE 3.2 mg/dL (0.55-1.30); PHENYTOIN (DILANTIN) 16.6 ug/mL (10.0-20.0); POTASSIUM 4.2 mmol/L (3.5-5.1); TOTAL BILIRUBIN 0.2 mg/dL (0.0-1.0)
[2019-07-29 07:51] LABS: BASOPHILS % (AUTO) 0.3 % (0.0-2.0); EOSINOPHILS # (AUTO) 1.3 K/uL (0.0-0.4); EOSINOPHILS % (AUTO) 7.3 % (0.0-4.0); HEMATOCRIT 23.9 % (36-54); HEMOGLOBIN 7.8 g/dL (14.0-18.0); LYMPHOCYTES # (AUTO) 1.2 K/uL (1.0-5.5); LYMPHOCYTES % (AUTO) 6.9 % (20.5-51.5); MEAN CORPUSCULAR HEMOGLOBIN 36 pg (27-31); MEAN CORPUSCULAR HGB CONC 33 % (32-36); MEAN CORPUSCULAR VOLUME 109 fL (79.0-98.0); NEUTROPHILS # (AUTO) 13.9 K/uL (1.8-7.7); NEUTROPHILS % (AUTO) 79.5 % (40.0-70.0); PLATELET COUNT (AUTO) 213 K/uL (130-430); RED BLOOD CELL COUNT(AUTO) 2.18 MIL/uL (4.2-6.2); RED CELL DISTRIBUTION WIDTH 16.6 % (9.0-15.0); WHITE BLOOD COUNT (AUTO) 17.5 K/uL (4.8-10.8)
[2019-07-29 08:00] VITALS: BP_SYST 144
[2019-07-29] MEDS: ALBUTEROL SULFATE 0.083% 2.5 MG/3 ML VIAL.NEB INH SCH ×4 (08:17→19:23)
[2019-07-29] MEDS: IPRATROPIUM BROM 0.5 MG/2.5 ML VIAL.NEB (ATROVENT) INH SCH ×4 (08:17→19:23)
[2019-07-29] MEDS: FERROUS SULFATE 300 MG/5 ML UDC GT SCH ×3 (09:05→21:37)
[2019-07-29] MEDS: LANSOPRAZOLE 30 MG CAPSULE.DR GT SCH (09:06)
[2019-07-29] MEDS: LEVOTHYROXINE SODIUM 0.1 MG VIAL IVP SCH (09:06)
[2019-07-29] MEDS: methylPREDNISolone SOD SUCC 40 MG/ML VIAL IVP SCH ×2 (09:07→21:37)
[2019-07-29] MEDS: POLYETHYLENE GLYCOL 3350, 17 GM/ POWD.PACK GT SCH ×2 (09:07→21:37)
[2019-07-29] MEDS: FAMOTIDINE PF 20 MG/2 ML VIAL IVP SCH ×2 (09:07→21:37)
[2019-07-29] MEDS: PHENYTOIN 100 MG/4 ML UDC (DILANTIN) GT SCH ×3 (09:08→21:37)
[2019-07-29] MEDS: MULTIVIT-MINERALS/FERROUS GLUC 15 ML UDC GT SCH (09:16)
[2019-07-29] MEDS: LevETIRAcetam 500 MG/5 ML UDC ORAL LIQUID GT SCH ×2 (09:16→18:26)
[2019-07-29] MEDS: CLOTRIMAZOLE/BETAMET DIPROP 15 GM TUBE TP SCH ×2 (09:18→21:38)
[2019-07-29] MEDS: CHLORHEXIDINE GLUCONATE 15 ML/DOSE, 480 ML MM SCH (09:18)
[2019-07-29] MEDS ORDERED: CEFEPIME 1 GM in D5W 50 ML IV ONE (11:00)
[2019-07-29 11:45] VITALS: BP_SYST 108
[2019-07-29 12:40] VITALS: BP_SYST 121
[2019-07-29] MEDS: D5/0.45 NS 1,000 ML IV SCH (13:22)
[2019-07-29] MEDS: FENOFIBRATE NANOCRYSTALLIZED 48 MG TABLET (TRICOR) GT SCH (14:41)
[2019-07-29] MEDS: LACOSAMIDE 100 MG TABLET GT SCH ×2 (14:41→21:36)
[2019-07-29 16:12] VITALS: BP_SYST 145
[2019-07-29] MEDS: CEFEPIME 1 GM in D5W 50 ML IV SCH (21:40)
[2019-07-30] VITALS (7 sets, daily range): BP systolic 118–148
[2019-07-30] MEDS: D5/0.45 NS 1,000 ML IV SCH (04:12)
[2019-07-30 07:09] LABS: BASOPHILS % (AUTO) 0.2 % (0.0-2.0); EOSINOPHILS # (AUTO) 0.9 K/uL (0.0-0.4); EOSINOPHILS % (AUTO) 8.3 % (0.0-4.0); HEMATOCRIT 23.4 % (36-54); HEMOGLOBIN 7.5 g/dL (14.0-18.0); LYMPHOCYTES # (AUTO) 0.9 K/uL (1.0-5.5); LYMPHOCYTES % (AUTO) 8.3 % (20.5-51.5); MEAN CORPUSCULAR HEMOGLOBIN 35 pg (27-31); MEAN CORPUSCULAR HGB CONC 32 % (32-36); MEAN CORPUSCULAR VOLUME 110 fL (79.0-98.0); MONOCYTES # (AUTO) 0.7 K/uL (0.0-1.0); MONOCYTES % (AUTO) 6.6 % (1.7-9.3); NEUTROPHILS # (AUTO) 8.6 K/uL (1.8-7.7); NEUTROPHILS % (AUTO) 76.6 % (40.0-70.0); PLATELET COUNT (AUTO) 205 K/uL (130-430); RED BLOOD CELL COUNT(AUTO) 2.13 MIL/uL (4.2-6.2); RED CELL DISTRIBUTION WIDTH 17.7 % (9.0-15.0); WHITE BLOOD COUNT (AUTO) 11.2 K/uL (4.8-10.8)
[2019-07-30 07:21] LABS: CALCIUM 11.4 mg/dL (8.4-11.0); POTASSIUM 4.1 mmol/L (3.5-5.1)
[2019-07-30] MEDS: IPRATROPIUM BROM 0.5 MG/2.5 ML VIAL.NEB (ATROVENT) INH SCH ×4 (08:09→19:41)
[2019-07-30] MEDS: ALBUTEROL SULFATE 0.083% 2.5 MG/3 ML VIAL.NEB INH SCH ×4 (08:10→19:41)
[2019-07-30] MEDS: LACOSAMIDE 100 MG TABLET GT SCH ×2 (09:00→21:53)
[2019-07-30] MEDS: POLYETHYLENE GLYCOL 3350, 17 GM/ POWD.PACK GT SCH ×2 (09:00→21:52)
[2019-07-30] MEDS: FERROUS SULFATE 300 MG/5 ML UDC GT SCH ×3 (09:00→21:52)
[2019-07-30] MEDS: LevETIRAcetam 500 MG/5 ML UDC ORAL LIQUID GT SCH ×2 (09:00→18:00)
[2019-07-30] MEDS: methylPREDNISolone SOD SUCC 40 MG/ML VIAL IVP SCH ×2 (09:00→21:20)
[2019-07-30] MEDS: CHLORHEXIDINE GLUCONATE 15 ML/DOSE, 480 ML MM SCH (09:00)
[2019-07-30] MEDS: MULTIVIT-MINERALS/FERROUS GLUC 15 ML UDC GT SCH (09:00)
[2019-07-30] MEDS: CLOTRIMAZOLE/BETAMET DIPROP 15 GM TUBE TP SCH ×2 (09:00→21:32)
[2019-07-30] MEDS: CEFEPIME 1 GM in D5W 50 ML IV SCH ×2 (09:00→21:20)
[2019-07-30] MEDS: LEVOTHYROXINE SODIUM 0.1 MG VIAL IVP SCH (09:00)
[2019-07-30] MEDS: FAMOTIDINE PF 20 MG/2 ML VIAL IVP SCH ×2 (09:00→21:20)
[2019-07-30] MEDS: PHENYTOIN 100 MG/4 ML UDC (DILANTIN) GT SCH ×3 (09:00→21:52)
[2019-07-30] MEDS: FENOFIBRATE NANOCRYSTALLIZED 48 MG TABLET (TRICOR) GT SCH (09:00)
[2019-07-30] MEDS: D5W 1,000 ML IV SCH ×2 (10:08→21:31)
[2019-07-31 01:08] VITALS: BP_SYST 133
[2019-07-31 07:15] LABS: BASOPHILS % (AUTO) 0.1 % (0.0-2.0); EOSINOPHILS # (AUTO) 1.1 K/uL (0.0-0.4); EOSINOPHILS % (AUTO) 8.3 % (0.0-4.0); HEMATOCRIT 23.6 % (36-54); HEMOGLOBIN 7.7 g/dL (14.0-18.0); LYMPHOCYTES # (AUTO) 1.1 K/uL (1.0-5.5); LYMPHOCYTES % (AUTO) 8.5 % (20.5-51.5); MEAN CORPUSCULAR HEMOGLOBIN 36 pg (27-31); MEAN CORPUSCULAR HGB CONC 33 % (32-36); MEAN CORPUSCULAR VOLUME 110 fL (79.0-98.0); MONOCYTES # (AUTO) 0.6 K/uL (0.0-1.0); MONOCYTES % (AUTO) 5.1 % (1.7-9.3); PLATELET COUNT (AUTO) 228 K/uL (130-430); RED BLOOD CELL COUNT(AUTO) 2.14 MIL/uL (4.2-6.2); WHITE BLOOD COUNT (AUTO) 12.8 K/uL (4.8-10.8)
[2019-07-31] MEDS: ALBUTEROL SULFATE 0.083% 2.5 MG/3 ML VIAL.NEB INH SCH ×4 (07:26→19:35)
[2019-07-31] MEDS: IPRATROPIUM BROM 0.5 MG/2.5 ML VIAL.NEB (ATROVENT) INH SCH ×4 (07:27→19:35)
[2019-07-31 08:18] LABS: RED CELL DISTRIBUTION WIDTH 17.8 % (9.0-15.0)
[2019-07-31 08:25] LABS: CALCIUM 11.3 mg/dL (8.4-11.0); CREATININE 2.93 mg/dL (0.55-1.30); PHOSPHORUS 2.4 mg/dL (2.7-4.5); POTASSIUM 3.8 mmol/L (3.5-5.1)
[2019-07-31 08:30] VITALS: BP_SYST 162
[2019-07-31] MEDS: CEFEPIME 1 GM in D5W 50 ML IV SCH ×2 (09:22→21:19)
[2019-07-31] MEDS: POLYETHYLENE GLYCOL 3350, 17 GM/ POWD.PACK GT SCH ×2 (09:23→21:19)
[2019-07-31] MEDS: LEVOTHYROXINE SODIUM 0.1 MG VIAL IVP SCH (09:24)
[2019-07-31] MEDS: MULTIVIT-MINERALS/FERROUS GLUC 15 ML UDC GT SCH (09:25)
[2019-07-31] MEDS: FERROUS SULFATE 300 MG/5 ML UDC GT SCH ×3 (09:25→21:20)
[2019-07-31] MEDS: PHENYTOIN 100 MG/4 ML UDC (DILANTIN) GT SCH ×3 (09:25→21:20)
[2019-07-31] MEDS: LevETIRAcetam 500 MG/5 ML UDC ORAL LIQUID GT SCH ×2 (09:25→17:14)
[2019-07-31] MEDS: FAMOTIDINE PF 20 MG/2 ML VIAL IVP SCH ×2 (09:27→21:22)
[2019-07-31] MEDS: FENOFIBRATE NANOCRYSTALLIZED 48 MG TABLET (TRICOR) GT SCH (09:27)
[2019-07-31] MEDS: LACOSAMIDE 100 MG TABLET GT SCH ×2 (09:27→21:21)
[2019-07-31] MEDS: methylPREDNISolone SOD SUCC 40 MG/ML VIAL IVP SCH ×2 (09:28→21:21)
[2019-07-31] MEDS: CLOTRIMAZOLE/BETAMET DIPROP 15 GM TUBE TP SCH ×2 (09:28→21:23)
[2019-07-31] MEDS: CHLORHEXIDINE GLUCONATE 15 ML/DOSE, 480 ML MM SCH (09:28)
[2019-07-31] MEDS: D5W 1,000 ML IV SCH (10:36)
[2019-07-31] MEDS ORDERED: PERMETHRIN 5% 60 GM CREAM.GM. TP ONE (11:30)
[2019-07-31 13:11] VITALS: BP_SYST 141
[2019-07-31] MEDS ORDERED: GASTROGRAFIN 120 ML ONE ×2 (13:37→14:16)
[2019-07-31 16:15] VITALS: BP_SYST 146
[2019-07-31] MEDS ORDERED: EPOETIN ALFA 4,000 UNITS/ML VIAL SUBCUT SCH (17:00)
[2019-07-31 20:00] VITALS: BP_SYST 156
[2019-08-01 01:26] VITALS: BP_SYST 141
[2019-08-01 06:01] LABS: BASOPHILS % (AUTO) 0.1 % (0.0-2.0); EOSINOPHILS # (AUTO) 0.8 K/uL (0.0-0.4); EOSINOPHILS % (AUTO) 7.2 % (0.0-4.0); HEMATOCRIT 22.5 % (36-54); HEMOGLOBIN 7.4 g/dL (14.0-18.0); LYMPHOCYTES # (AUTO) 0.9 K/uL (1.0-5.5); MEAN CORPUSCULAR HEMOGLOBIN 36 pg (27-31); MEAN CORPUSCULAR HGB CONC 33 % (32-36); MEAN CORPUSCULAR VOLUME 109 fL (79.0-98.0); MONOCYTES # (AUTO) 0.8 K/uL (0.0-1.0); MONOCYTES % (AUTO) 7.7 % (1.7-9.3); NEUTROPHILS # (AUTO) 8.3 K/uL (1.8-7.7); PLATELET COUNT (AUTO) 216 K/uL (130-430); RED BLOOD CELL COUNT(AUTO) 2.05 MIL/uL (4.2-6.2); RED CELL DISTRIBUTION WIDTH 17.9 % (9.0-15.0); WHITE BLOOD COUNT (AUTO) 10.8 K/uL (4.8-10.8)
[2019-08-01] MEDS: LevETIRAcetam 500 MG/5 ML UDC ORAL LIQUID GT SCH ×2 (09:00→17:24)
[2019-08-01] MEDS: FENOFIBRATE NANOCRYSTALLIZED 48 MG TABLET (TRICOR) GT SCH (09:00)
[2019-08-01] MEDS: FERROUS SULFATE 300 MG/5 ML UDC GT SCH ×2 (09:00→14:47)
[2019-08-01] MEDS: LACOSAMIDE 100 MG TABLET GT SCH (09:00)
[2019-08-01] MEDS: CLOTRIMAZOLE/BETAMET DIPROP 15 GM TUBE TP SCH (09:00)
[2019-08-01] MEDS: CHLORHEXIDINE GLUCONATE 15 ML/DOSE, 480 ML MM SCH (09:00)
[2019-08-01] MEDS: POLYETHYLENE GLYCOL 3350, 17 GM/ POWD.PACK GT SCH (09:00)
[2019-08-01] MEDS: MULTIVIT-MINERALS/FERROUS GLUC 15 ML UDC GT SCH (09:00)
[2019-08-01] MEDS: PHENYTOIN 100 MG/4 ML UDC (DILANTIN) GT SCH ×2 (09:00→14:47)
[2019-08-01] MEDS: ALBUTEROL SULFATE 0.083% 2.5 MG/3 ML VIAL.NEB INH SCH ×3 (11:09→15:27)
[2019-08-01] MEDS: IPRATROPIUM BROM 0.5 MG/2.5 ML VIAL.NEB (ATROVENT) INH SCH ×3 (11:10→15:27)
[2019-08-01 11:25] LABS: CALCIUM 10.6 mg/dL (8.4-11.0); POTASSIUM 3.3 mmol/L (3.5-5.1)
[2019-08-01 12:00] VITALS: BP_SYST 143
[2019-08-01 12:28] VITALS: BP_SYST 141
[2019-08-01 16:12] VITALS: BP_SYST 141
[2019-08-01 16:38] VITALS: BP_SYST 141
[2019-08-01] MEDS ORDERED: PREDNISONE 10 MG TABLET PO SCH (18:00)
[2019-08-02] MEDS ORDERED: LEVOTHYROXINE SODIUM 0.05 MG TABLET PO SCH (07:00)
[2019-08-02] MEDS ORDERED: PANTOPRAZOLE SODIUM 40 MG TAB PO SCH (09:00)
== END 2019-08-01 18:56 | disposition home or self-care (01) | DRG 871 ==
LOC: SED 07:53 → SIC 10:19 → STU 07-22 16:16
PROVIDERS: ADMIT Internal Medicine; ATTEND Internal Medicine
PROC: 02HV33Z Insertion of Infusion Device into Superior Vena Cava, Percutaneous Approach (ICD-10-PCS; 2019-07-20)
PROC: B548ZZA Ultrasonography of Superior Vena Cava, Guidance (ICD-10-PCS; 2019-07-20)
PROC: 5A09357 Assistance with Respiratory Ventilation, Less than 24 Consecutive Hours, Continuous Positive Airway Pressure (ICD-10-PCS; 2019-07-23)
PROC: 5A09357 Assistance with Respiratory Ventilation, Less than 24 Consecutive Hours, Continuous Positive Airway Pressure (ICD-10-PCS; 2019-07-26)
PROC: 0D20XUZ Change Feeding Device in Upper Intestinal Tract, External Approach (ICD-10-PCS; principal; 2019-07-31)
DX: A41.9 Sepsis, unspecified organism (principal); J96.21 Acute and chronic respiratory failure with hypoxia; R53.2 Functional quadriplegia; J69.0 Pneumonitis due to inhalation of food and vomit; E87.1 Hypo-osmolality and hyponatremia; N17.9 Acute kidney failure, unspecified; L03.113 Cellulitis of right upper limb; N39.0 Urinary tract infection, site not specified; E46 Unspecified protein-calorie malnutrition; K94.23 Gastrostomy malfunction; I50.30 Unspecified diastolic (congestive) heart failure; I13.0 Hypertensive heart and chronic kidney disease with heart failure and stage 1 through stage 4 chronic kidney disease, or unspecified chronic kidney disease; N18.4 Chronic kidney disease, stage 4 (severe); G93.49 Other encephalopathy; F72 Severe intellectual disabilities; Q85.1 Tuberous sclerosis; Y83.3 Surgical operation with formation of external stoma as the cause of abnormal reaction of the patient, or of later complication, without mention of misadventure at the time of the procedure; I95.9 Hypotension, unspecified; D50.9 Iron deficiency anemia, unspecified; F03.90 Unspecified dementia, unspecified severity, without behavioral disturbance, psychotic disturbance, mood disturbance, and anxiety; I48.0 Paroxysmal atrial fibrillation; G47.30 Sleep apnea, unspecified; E03.9 Hypothyroidism, unspecified; M81.0 Age-related osteoporosis without current pathological fracture; T42.0X5A Adverse effect of hydantoin derivatives, initial encounter; E83.52 Hypercalcemia; E78.5 Hyperlipidemia, unspecified; E87.5 Hyperkalemia; D63.1 Anemia in chronic kidney disease; G40.409 Other generalized epilepsy and epileptic syndromes, not intractable, without status epilepticus; K21.9 Gastro-esophageal reflux disease without esophagitis; E66.9 Obesity, unspecified; Z68.29 Body mass index [BMI] 29.0-29.9, adult; Z79.899 Other long term (current) drug therapy; Z78.1 Physical restraint status; Y92.89 Other specified places as the place of occurrence of the external cause; Z88.1 Allergy status to other antibiotic agents; Z88.2 Allergy status to sulfonamides; Z88.8 Allergy status to other drugs, medicaments and biological substances; Z74.01 Bed confinement status; Z85.828 Personal history of other malignant neoplasm of skin
CPT/HCPCS: 36415; 36600; 71045; 74240-TC; 80048; 80053; 80162-TC; 80185-TC; 80202-TC; 81000-TC; 82306; 82533; 82550-TC; 82803-TC; 83605; 83735-TC; 83880; 83930-TC; 83935-TC; 83970; 84100-TC; 84302-TC; 84443-TC; 84484; 85007; 85025; 85027; 85610-TC; 85730-TC; 87040-TC; 87070-TC; 87081; 87205-TC; 87210-TC; 93005; 93970; 93971; 94640; 94660; 94760; 99285; C1751; J0461; J0692; J0885; J1030; J1200; J1940; J2060; J3370; J3490; J7030; J7050; J7060; J7512; J7613; Q9963

== ENCOUNTER 2019-08-29 01:58 | Inpatient (IN) | payer OTHER, MEDICAID ==
[~2019-08-29] VITALS: Ht 165.1 cm; Wt 78.9 kg
[~2019-08-29 01:58] MED LIST changes: +ACET325C6 GT; +BISA-95 PR; -BISA10SU61 RC; +CALAZIME TP; +CHLO473M12 PO; +CLOT15CR5 TP; +DEXTROMETHORPHAN GT; +GUAIFENESIN GT; -IMO2 GT; +LOPE-178 GT; +NA P135E3 PR; -TYLL650 GT; +ZINC113O4 TP; +[UNRECOGNIZED DRUG - CODE] TP; -[UNRECOGNIZED DRUG - CODE] TP; +[UNRECOGNIZED DRUG - OTHER] EACH EAR
[2019-08-29 02:45] VITALS: BP_SYST 111
[2019-08-29] MEDS ORDERED: NACL 0.9% 1,000 ML IV ONE (03:13)
[2019-08-29 04:16] LABS: BILIRUBIN,URINE NEGATIVE (NEGATIVE); BLOOD, URINE 1+ (NEGATIVE); CLARITY/URINE CLOUDY (CLEAR); COLOR,URINE YELLOW (YELLOW); GLUCOSE,URINE NEGATIVE (NEGATIVE); KETONES,URINE NEGATIVE (NEGATIVE); LEUKOCYTE ESTERASE ,URINE 3+ (NEGATIVE); NITRITE, URINE NEGATIVE (NEGATIVE); PROTEIN URINE 1+ (NEGATIVE); UROBILINOGEN,URINE 0.2 (0.2-1.0)
[2019-08-29 04:21] LABS: BACTERIA,URINE MANY /HPF (None Seen); WBC,URINE >100 /HPF (0-3)
[2019-08-29 04:40] LABS: BASOPHILS % (AUTO) 0.8 % (0.0-2.0); EOSINOPHILS # (AUTO) 1.5 K/uL (0.0-0.4); EOSINOPHILS % (AUTO) 30.5 % (0.0-4.0); HEMATOCRIT 32.4 % (36-54); LYMPHOCYTES # (AUTO) 0.6 K/uL (1.0-5.5); LYMPHOCYTES % (AUTO) 12.7 % (20.5-51.5); MEAN CORPUSCULAR HEMOGLOBIN 37 pg (27-31); MEAN CORPUSCULAR HGB CONC 34 % (32-36); MEAN CORPUSCULAR VOLUME 108 fL (79.0-98.0); MONOCYTES # (AUTO) 0.3 K/uL (0.0-1.0); MONOCYTES % (AUTO) 5.7 % (1.7-9.3); NEUTROPHILS # (AUTO) 2.5 K/uL (1.8-7.7); NEUTROPHILS % (AUTO) 50.3 % (40.0-70.0); PLATELET COUNT (AUTO) 179 K/uL (130-430); RED BLOOD CELL COUNT(AUTO) 2.99 MIL/uL (4.2-6.2)
[2019-08-29 04:46] LABS: CREATININE 2.95 mg/dL (0.55-1.30); POTASSIUM 4.7 mmol/L (3.5-5.1)
[2019-08-29 04:48] LABS: INR 1.2 (0.80-1.20); PROTHROMBIN TIME 11.6 SECS (9.5-12.5)
[2019-08-29 04:59] LABS: ALBUMIN 2.9 g/dL (3.4-4.8); TOTAL BILIRUBIN 0.2 mg/dL (0.0-1.0)
[2019-08-29] MEDS ORDERED: cefTRIAXone 1 GM in LIDOCAINE 1%, 20 ML MDV 2.1 ML IM ONE (05:45)
[2019-08-29] MEDS ORDERED: ERGO800011 PO (06:35)
[2019-08-29] MEDS ORDERED: FENO54TA4 GT (06:36)
[2019-08-29] MEDS ORDERED: FERR-69 GT (06:55)
[2019-08-29 08:45] VITALS: BP_SYST 146
[2019-08-29] MEDS ORDERED: D5/0.45 NS 1,000 ML IV SCH (10:00)
[2019-08-29] MEDS: PIPERACILLIN/TAZO 2.25G/DEX-IS 50 ML IV SCH ×2 (11:03→19:27)
[2019-08-29] MEDS ORDERED: LOPERAMIDE HCL 2 MG CAPSULE GT PRN (12:15)
[2019-08-29] MEDS ORDERED: ALBUTEROL SULFATE 0.083% 2.5 MG/3 ML VIAL.NEB INH PRN (12:15)
[2019-08-29] MEDS ORDERED: SODIUM PHOSPHATE,MONO-DIBASIC 133 ML ENEMA RC PRN (12:15)
[2019-08-29] MEDS ORDERED: ONDANSETRON 4 MG ODT TAB PO PRN (12:15)
[2019-08-29 12:35] VITALS: BP_SYST 117
[2019-08-29] MEDS ORDERED: PHENYTOIN 100 MG/4 ML UDC (DILANTIN) GT SCH (15:00)
[2019-08-29] MEDS: PHENYTOIN 100 MG/4 ML UDC (DILANTIN) GT SCH ×2 (15:00→20:30)
[2019-08-29 16:26] VITALS: BP_SYST 140
[2019-08-29] MEDS: SODIUM BICARBONATE 650 MG TABLET GT SCH ×2 (17:08→20:29)
[2019-08-29] MEDS: NACL 0.9% 1,000 ML IV SCH (17:09)
[2019-08-29] MEDS: LevETIRAcetam 500 MG/5 ML UDC ORAL LIQUID GT SCH (17:16)
[2019-08-29 17:40] VITALS: BP_SYST 117
[2019-08-29 20:00] VITALS: BP_SYST 124
[2019-08-29] MEDS: POLYETHYLENE GLYCOL 3350, 17 GM/ POWD.PACK GT SCH (20:29)
[2019-08-29] MEDS: LACOSAMIDE 100 MG TABLET GT SCH (20:30)
[2019-08-29] MEDS: hydrALAZINE HCL 10 MG TABLET GT SCH (20:39)
[2019-08-30 00:44] VITALS: BP_SYST 153
[2019-08-30] MEDS: PIPERACILLIN/TAZO 2.25G/DEX-IS 50 ML IV SCH ×3 (02:35→16:52)
[2019-08-30 07:00] LABS: ALBUMIN 2.9 g/dL (3.4-4.8); CREATININE 3.3 mg/dL (0.55-1.30); POTASSIUM 5.2 mmol/L (3.5-5.1); TOTAL BILIRUBIN 0.3 mg/dL (0.0-1.0)
[2019-08-30 08:42] LABS: BASOPHILS % (AUTO) 0.6 % (0.0-2.0); EOSINOPHILS # (AUTO) 0.5 K/uL (0.0-0.4); EOSINOPHILS % (AUTO) 9.9 % (0.0-4.0); HEMATOCRIT 32.6 % (36-54); HEMOGLOBIN 10.6 g/dL (14.0-18.0); LYMPHOCYTES # (AUTO) 0.6 K/uL (1.0-5.5); LYMPHOCYTES % (AUTO) 11.2 % (20.5-51.5); MEAN CORPUSCULAR HEMOGLOBIN 36 pg (27-31); MEAN CORPUSCULAR HGB CONC 33 % (32-36); MEAN CORPUSCULAR VOLUME 111 fL (79.0-98.0); MONOCYTES # (AUTO) 0.3 K/uL (0.0-1.0); MONOCYTES % (AUTO) 5.7 % (1.7-9.3); NEUTROPHILS % (AUTO) 72.6 % (40.0-70.0); PLATELET COUNT (AUTO) 112 K/uL (130-430); RED BLOOD CELL COUNT(AUTO) 2.93 MIL/uL (4.2-6.2); RED CELL DISTRIBUTION WIDTH 16.5 % (9.0-15.0); WHITE BLOOD COUNT (AUTO) 5.5 K/uL (4.8-10.8)
[2019-08-30] MEDS: POLYETHYLENE GLYCOL 3350, 17 GM/ POWD.PACK GT SCH ×2 (08:52→20:42)
[2019-08-30] MEDS: PHENYTOIN 100 MG/4 ML UDC (DILANTIN) GT SCH ×3 (08:53→20:42)
[2019-08-30] MEDS: SODIUM BICARBONATE 650 MG TABLET GT SCH ×3 (08:58→20:42)
[2019-08-30] MEDS: MULTIVITS,CA,MINERALS/IRON/FA 1 TABLET GT SCH (08:59)
[2019-08-30] MEDS: LACOSAMIDE 100 MG TABLET GT SCH ×2 (08:59→20:42)
[2019-08-30] MEDS: hydrALAZINE HCL 10 MG TABLET GT SCH ×2 (09:00→21:03)
[2019-08-30] MEDS: LANSOPRAZOLE 30 MG CAPSULE.DR GT SCH (09:01)
[2019-08-30] MEDS: amLODIPine BESYLATE 5 MG TABLET GT SCH (09:03)
[2019-08-30 09:05] VITALS: BP_SYST 123
[2019-08-30] MEDS: NACL 0.9% 1,000 ML IV SCH (09:05)
[2019-08-30 09:18] LABS: CALCIUM 12.5 mg/dL (8.4-11.0)
[2019-08-30] MEDS: LevETIRAcetam 500 MG/5 ML UDC ORAL LIQUID GT SCH ×2 (09:23→17:05)
[2019-08-30] MEDS ORDERED: SODIUM POLYSTYRENE SULFONATE 15 GM/60 ML UDBTL PO ONE (12:30)
[2019-08-30 12:38] VITALS: BP_SYST 143
[2019-08-30 16:35] VITALS: BP_SYST 158
[2019-08-30] MEDS: EPOETIN ALFA 3,000 UNITS/ML VIAL SUBCUT SCH (16:57)
[2019-08-30] MEDS: EPOETIN ALFA 2,000 UNITS/ML VIAL SUBCUT SCH (16:57)
[2019-08-30] MEDS ORDERED: EPOETIN ALFA 3,000 UNITS/ML VIAL SUBCUT SCH (17:00)
[2019-08-30 20:00] VITALS: BP_SYST 155
[2019-08-31 00:07] VITALS: BP_SYST 146
[2019-08-31] MEDS: PIPERACILLIN/TAZO 2.25G/DEX-IS 50 ML IV SCH ×2 (03:20→09:20)
[2019-08-31] MEDS: NACL 0.9% 1,000 ML IV SCH ×2 (03:21→23:09)
[2019-08-31 07:48] LABS: BASOPHILS # (AUTO) 0.1 K/uL (0.0-0.2); BASOPHILS % (AUTO) 0.6 % (0.0-2.0); EOSINOPHILS # (AUTO) 0.2 K/uL (0.0-0.4); EOSINOPHILS % (AUTO) 1.7 % (0.0-4.0); HEMATOCRIT 32.3 % (36-54); HEMOGLOBIN 10.6 g/dL (14.0-18.0); LYMPHOCYTES # (AUTO) 0.6 K/uL (1.0-5.5); LYMPHOCYTES % (AUTO) 4.9 % (20.5-51.5); MEAN CORPUSCULAR HEMOGLOBIN 36 pg (27-31); MEAN CORPUSCULAR HGB CONC 33 % (32-36); MEAN CORPUSCULAR VOLUME 110 fL (79.0-98.0); MONOCYTES # (AUTO) 0.8 K/uL (0.0-1.0); MONOCYTES % (AUTO) 6.3 % (1.7-9.3); NEUTROPHILS % (AUTO) 86.5 % (40.0-70.0); PLATELET COUNT (AUTO) 138 K/uL (130-430); RED BLOOD CELL COUNT(AUTO) 2.93 MIL/uL (4.2-6.2); RED CELL DISTRIBUTION WIDTH 16.7 % (9.0-15.0); WHITE BLOOD COUNT (AUTO) 12.7 K/uL (4.8-10.8)
[2019-08-31 07:57] LABS: ALBUMIN 2.8 g/dL (3.4-4.8); CREATININE 3.61 mg/dL (0.55-1.30); PHENYTOIN (DILANTIN) 16.7 ug/mL (10.0-20.0); POTASSIUM 4.1 mmol/L (3.5-5.1); TOTAL BILIRUBIN 0.2 mg/dL (0.0-1.0)
[2019-08-31 09:04] VITALS: BP_SYST 125
[2019-08-31] MEDS: MULTIVITS,CA,MINERALS/IRON/FA 1 TABLET GT SCH (09:19)
[2019-08-31] MEDS: hydrALAZINE HCL 10 MG TABLET GT SCH ×2 (09:19→22:35)
[2019-08-31] MEDS: LACOSAMIDE 100 MG TABLET GT SCH ×2 (09:20→22:32)
[2019-08-31] MEDS: PHENYTOIN 100 MG/4 ML UDC (DILANTIN) GT SCH ×3 (09:20→22:33)
[2019-08-31] MEDS: LevETIRAcetam 500 MG/5 ML UDC ORAL LIQUID GT SCH ×2 (09:21→18:22)
[2019-08-31] MEDS: POLYETHYLENE GLYCOL 3350, 17 GM/ POWD.PACK GT SCH ×2 (09:21→22:33)
[2019-08-31] MEDS: amLODIPine BESYLATE 5 MG TABLET GT SCH (09:21)
[2019-08-31] MEDS: SODIUM BICARBONATE 650 MG TABLET GT SCH ×3 (09:21→22:33)
[2019-08-31] MEDS: LANSOPRAZOLE 30 MG CAPSULE.DR GT SCH (09:22)
[2019-08-31 12:48] VITALS: BP_SYST 130
[2019-08-31 17:04] VITALS: BP_SYST 140
[2019-08-31 20:00] VITALS: BP_SYST 145
[2019-08-31] MEDS ORDERED: PIPERACILLIN/TAZO 2.25G/DEX-IS 50 ML IV SCH (21:00)
[2019-09-01 00:12] VITALS: BP_SYST 136
[2019-09-01] MEDS: MEROPENEM 500 MG in NS 50 ML IV SCH ×2 (04:42→15:50)
[2019-09-01] MEDS: NACL 0.9% 1,000 ML IV SCH (04:47)
[2019-09-01] MEDS ORDERED: MEROPENEM 500 MG VIAL IV ONE (04:49)
[2019-09-01 08:00] VITALS: BP_SYST 153
[2019-09-01 08:14] LABS: BASOPHILS % (AUTO) 0.5 % (0.0-2.0); EOSINOPHILS # (AUTO) 0.5 K/uL (0.0-0.4); EOSINOPHILS % (AUTO) 7.7 % (0.0-4.0); HEMATOCRIT 33.6 % (36-54); HEMOGLOBIN 11.1 g/dL (14.0-18.0); LYMPHOCYTES # (AUTO) 0.5 K/uL (1.0-5.5); LYMPHOCYTES % (AUTO) 7.2 % (20.5-51.5); MEAN CORPUSCULAR HEMOGLOBIN 36 pg (27-31); MEAN CORPUSCULAR HGB CONC 33 % (32-36); MEAN CORPUSCULAR VOLUME 109 fL (79.0-98.0); MONOCYTES # (AUTO) 0.6 K/uL (0.0-1.0); MONOCYTES % (AUTO) 9.8 % (1.7-9.3); NEUTROPHILS # (AUTO) 4.8 K/uL (1.8-7.7); NEUTROPHILS % (AUTO) 74.8 % (40.0-70.0); PLATELET COUNT (AUTO) 112 K/uL (130-430); RED BLOOD CELL COUNT(AUTO) 3.07 MIL/uL (4.2-6.2); WHITE BLOOD COUNT (AUTO) 6.4 K/uL (4.8-10.8)
[2019-09-01 08:18] LABS: RED CELL DISTRIBUTION WIDTH 16.4 % (9.0-15.0)
[2019-09-01 08:24] LABS: ALBUMIN 2.9 g/dL (3.4-4.8); CALCIUM 10.4 mg/dL (8.4-11.0); CREATININE 3.29 mg/dL (0.55-1.30); PHOSPHORUS 5.8 mg/dL (2.7-4.5); POTASSIUM 4.9 mmol/L (3.5-5.1); TOTAL BILIRUBIN 0.3 mg/dL (0.0-1.0)
[2019-09-01] MEDS: LACOSAMIDE 100 MG TABLET GT SCH ×2 (09:51→20:08)
[2019-09-01] MEDS: PHENYTOIN 100 MG/4 ML UDC (DILANTIN) GT SCH ×3 (09:52→20:08)
[2019-09-01] MEDS: SODIUM BICARBONATE 650 MG TABLET GT SCH ×3 (09:52→20:08)
[2019-09-01] MEDS: POLYETHYLENE GLYCOL 3350, 17 GM/ POWD.PACK GT SCH ×2 (09:52→20:08)
[2019-09-01] MEDS: amLODIPine BESYLATE 5 MG TABLET GT SCH (09:53)
[2019-09-01] MEDS: MULTIVITS,CA,MINERALS/IRON/FA 1 TABLET GT SCH (09:53)
[2019-09-01] MEDS: hydrALAZINE HCL 10 MG TABLET GT SCH ×2 (09:53→20:09)
[2019-09-01] MEDS: LANSOPRAZOLE 30 MG CAPSULE.DR GT SCH (09:54)
[2019-09-01] MEDS: LevETIRAcetam 500 MG/5 ML UDC ORAL LIQUID GT SCH ×2 (10:09→17:04)
[2019-09-01 12:00] VITALS: BP_SYST 148
[2019-09-01] MEDS ORDERED: MERO500V IV (13:00)
[2019-09-01] MEDS ORDERED: PHEN100C4 GT (13:01)
[2019-09-01 14:20] VITALS: BP_SYST 153
[2019-09-01 15:30] VITALS: BP_SYST 149
[2019-09-01] MEDS: EPOETIN ALFA 2,000 UNITS/ML VIAL SUBCUT SCH (15:54)
[2019-09-01] MEDS: EPOETIN ALFA 3,000 UNITS/ML VIAL SUBCUT SCH (15:55)
[2019-09-01] MEDS ORDERED: ALBUMIN HUMAN 25% 50 ML IV ONE (16:00)
[2019-09-01 19:46] VITALS: BP_SYST 158
== END 2019-09-01 21:20 | disposition home or self-care (01) | DRG 871 ==
LOC: SED 01:58 → STU 07:20
PROVIDERS: ADMIT Internal Medicine; ATTEND Internal Medicine
PROC: 02HV33Z Insertion of Infusion Device into Superior Vena Cava, Percutaneous Approach (ICD-10-PCS; principal; 2019-08-29)
PROC: B548ZZA Ultrasonography of Superior Vena Cava, Guidance (ICD-10-PCS; 2019-08-29)
DX: A41.59 Other Gram-negative sepsis (principal); R53.2 Functional quadriplegia; N39.0 Urinary tract infection, site not specified; E87.1 Hypo-osmolality and hyponatremia; J98.11 Atelectasis; N17.9 Acute kidney failure, unspecified; Q85.1 Tuberous sclerosis; N18.4 Chronic kidney disease, stage 4 (severe); D50.9 Iron deficiency anemia, unspecified; E03.9 Hypothyroidism, unspecified; I12.9 Hypertensive chronic kidney disease with stage 1 through stage 4 chronic kidney disease, or unspecified chronic kidney disease; E11.22 Type 2 diabetes mellitus with diabetic chronic kidney disease; F79 Unspecified intellectual disabilities; K21.9 Gastro-esophageal reflux disease without esophagitis; J98.6 Disorders of diaphragm; E66.9 Obesity, unspecified; E78.5 Hyperlipidemia, unspecified; E83.52 Hypercalcemia; G40.909 Epilepsy, unspecified, not intractable, without status epilepticus; M81.0 Age-related osteoporosis without current pathological fracture; Z85.828 Personal history of other malignant neoplasm of skin; Z87.01 Personal history of pneumonia (recurrent); Z93.1 Gastrostomy status; Z88.2 Allergy status to sulfonamides; Z88.1 Allergy status to other antibiotic agents; Z79.899 Other long term (current) drug therapy; Z68.29 Body mass index [BMI] 29.0-29.9, adult
CPT/HCPCS: 36415; 71045; 76770; 80048; 80053; 80185-TC; 81000-TC; 82140-TC; 83605; 83880; 84100-TC; 84443-TC; 85025; 85610-TC; 85730-TC; 87040-TC; 87081; 87086; 87186-TC; 94760; 96372; 99285; C1751; G0378; J0696; J0885; J2001; J2185; J2543; J7030; P9046